=== PATIENT | male | born 1950 | race Caucasian/White ===

== ENCOUNTER 2020-03-03 05:32 | Inpatient (IN) | payer OTHER ==
[2020-03-03] MEDS ORDERED: metoPROLOL SUCCINATE 25 MG TAB.SR.24H (FP) PO ONE (11:18)
--- NOTE | 2020-03-03 11:20 | HP ---
Admitting History and Physical - Primary Care Physician PCP: Lauren Chambers - Admission Chief Complaint: rapid Afib History of Present Illness: GI - DR Vaca called me for this pt - Pt was scheduled to undergo EGD/colonoscopy today but was found to be in rapid AFib-- he did not get endoscopy done-- while he was being checked for vitals and connected to monitor, was found to be in rapid AFib EKF-- shows rapid AFib I examined him in the Endo suite-- seated in chair, friend at bedside-- pt is comfortable, no palpitations, chest pain or dizziness He does have chronic right knee pain EKG done-- noted to have rapid Afib History Source: Patient Limitations to Obtaining History: No Limitations - Past Medical History Cardiovascular: Yes: CHF, HTN, Hyperlipdemia Musculoskeletal: Yes: Osteoarthritis - Advance Directives Advance Directives: Yes: Living Will, Health Care Proxy - Smoking History Smoking history: Former smoker Have you smoked in the past 12 months: No Aproximately how many cigarettes per day: 0 If you are a former smoker, when did you quit?: 2007 - Alcohol/Substance Use Hx Alcohol Use: No Home Medications - Allergies Allergies/Adverse Reactions: Allergies Allergy/AdvReac Type Severity Reaction Status Date / Time No Known Drug Allergies Allergy Verified 11/20/13 08:49 - Home Medications Home Medications: Ambulatory Orders Furosemide [Lasix -] 40 mg PO DAILY #0 tablet 01/15/13 Montelukast Na [Singulair -] 10 mg PO HS #0 tablet 01/15/13 Potassium Chloride [K-Dur] 10 meq PO DAILY 02/01/13 Loratadine [Claritin -] 10 mg PO DAILY 11/14/13 Aspirin [Aspirin EC] 81 mg PO DAILY 02/27/20 Losartan Potassium [Cozaar -] 100 mg PO DAILY 02/27/20 Review of Systems - Review of Systems Constitutional: denies: Chills, Fever Cardiovascular: denies: Chest Pain, Edema, Palpitations, Shortness of Breath Neurological: denies: Dizziness Physical Examination Vital Signs: Vital Signs Temperature 97.7 F 03/03/20 10:22 Pulse Rate 154 H 03/03/20 10:22 Respiratory Rate 16 03/03/20 10:22 Blood Pressure 150/89 03/03/20 10:22 O2 Sat by Pulse Oximetry (%) 94 L 03/03/20 10:22 Constitutional: Yes: No Distress, Calm Cardiovascular: Yes: Pulse Irregular Respiratory: Yes: Diminished Gastrointestinal: Yes: Normal Bowel Sounds, Soft, Abdomen, Obese. No: Palpable Mass, Tenderness Edema: Yes Edema: LLE: 1+, RLE: 1+ Neurological: Yes: Alert, Oriented ...Motor Strength: WNL Psychiatric: Yes: WNL Imaging - Results EKG: Image Reviewed (rapid afib) Problem List - Problems (1) Diastolic CHF Code(s): I50.30 - UNSPECIFIED DIASTOLIC (CONGESTIVE) HEART FAILURE (2) New onset a-fib Code(s): I48.91 - UNSPECIFIED ATRIAL FIBRILLATION (3) Rapid atrial fibrillation Code(s): I48.91 - UNSPECIFIED ATRIAL FIBRILLATION (4) HTN (hypertension) Code(s): I10 - ESSENTIAL (PRIMARY) HYPERTENSION (5) Obesity Code(s): E66.9 - OBESITY, UNSPECIFIED Assessment/Plan PLAN Check labs now check cardiac enzymes Needs admission to telemetry cancelled endoscopy for now spoke with Cardiology and GI stat dose of toprol start Eliquis check rate will need iv lopressor as needed
[2020-03-03] MEDS: METOPROLOL TARTRATE 5 MG/5 ML VIAL IVPUSH PRN ×2 (12:09→18:23)
[2020-03-03] MEDS: APIXABAN 5 MG TABLET PO SCH ×2 (12:09→21:10)
--- NOTE | 2020-03-03 13:16 | CON.CARD ---
Consult Consult Specialty:: cardiology Referred by:: medicine Reason for Consultation:: afib - History of Present Illness Chief Complaint: afib History of Present Illness: 69M h/o HTN, ?CHF p/w atrial fibrillation. He had planned outpatient colonoscopy, when he was hooked up to the monitor noted to be in afib with RVR with rates reportedly up to 140s-150s. Received IV metoprolol and PO metoprolol succinate as well as eliquis. He denies prior diagnosis of afib but was was on blood thinners in the past, was on rivaroxaban he is not sure why. He was also told he had "mild heart failure" in the past not sure of details. Saw Dr. Watkins several years ago, no cardio follow up since then. Currently no chest pain, palps, dizziness, dyspnea - History Source History Provided By: Patient - Past Medical History Cardio/Vascular: Yes: CHF, HTN - Alcohol/Substance Use Hx Alcohol Use: No - Smoking History Smoking history: Former smoker Have you smoked in the past 12 months: No Aproximately how many cigarettes per day: 0 If you are a former smoker, when did you quit?: 2007 Home Medications - Allergies Allergies/Adverse Reactions: Allergies Allergy/AdvReac Type Severity Reaction Status Date / Time No Known Drug Allergies Allergy Verified 11/20/13 08:49 - Home Medications Home Medications: Ambulatory Orders Furosemide [Lasix -] 40 mg PO DAILY #0 tablet 01/15/13 Montelukast Na [Singulair -] 10 mg PO HS #0 tablet 01/15/13 Potassium Chloride [K-Dur] 10 meq PO DAILY 02/01/13 Loratadine [Claritin -] 10 mg PO DAILY 11/14/13 Aspirin [Aspirin EC] 81 mg PO DAILY 02/27/20 Losartan Potassium [Cozaar -] 100 mg PO DAILY 02/27/20 Family Medical History Family History: Unremarkable Review of Systems - Review of Systems Constitutional: reports: No Symptoms Eyes: reports: No Symptoms HENT: reports: No Symptoms Neck: reports: No Symptoms Cardiovascular: reports: No Symptoms Respiratory: reports: No Symptoms Gastrointestinal: reports: No Symptoms Genitourinary: reports: No Symptoms Musculoskeletal: reports: No Symptoms Integumentary: reports: No Symptoms Neurological: reports: No Symptoms Endocrine: reports: No Symptoms Hematology/Lymphatic: reports: No Symptoms Psychiatric: reports: No Symptoms Vital Signs: Vital Signs Temperature 97.7 F 03/03/20 10:22 Pulse Rate 140 H 03/03/20 12:09 Respiratory Rate 16 03/03/20 10:22 Blood Pressure 131/89 03/03/20 12:09 O2 Sat by Pulse Oximetry (%) 94 L 03/03/20 10:22 Constitutional: Yes: No Distress, Calm Eyes: Yes: Conjunctiva Clear, EOM Intact HENT: Yes: Atraumatic, Normocephalic Neck: Yes: Supple, Trachea Midline Respiratory: Yes: Regular, CTA Bilaterally Gastrointestinal: Yes: Normal Bowel Sounds, Soft Cardiovascular: Yes: Pulse Irregular JVD: No Heart Sounds: Yes: S1, S2 Musculoskeletal: No: Back Pain Extremities: No: Cold Edema: No Integumentary: No: Jaundice Neurological: Yes: Alert, Oriented Psychiatric: No: Agitated Assessment/Plan tele: afib rate 90s-110s atrial fibrillation - new diagnosis - labs pending, check TSH as well - start metoprolol for rate control, uptitrate as tolerated - [id number] warrants anticoagulation, cont eliquis 5 mg BID -check echo - monitor on tele HTN - cont losartan ?CHF - patient was told this in the past but not sure of details - check echo
[2020-03-03 14:10] LABS: BASO % 0.2 % (0-2.0); EOS % 1.1 % (0-4.5); HEMATOCRIT 48.1 % (35.4-49); HEMOGLOBIN 16.7 GM/dL (11.7-16.9); LYMPH % 25.1 % (8-40); MCH 32.2 pg (25.7-33.7); MCHC 34.7 g/dl (32.0-35.9); MEAN CELL VOLUME 92.6 fl (80-96); MEAN PLT VOLUME 8.9 fl (7.5-11.1); MONO % 7.4 % (3.8-10.2); NEUT % 66.2 % (42.8-82.8); PLATELET COUNT 195 K/MM3 (134-434); RBC 5.19 M/mm3 (4.00-5.60); RDW 13.6 % (11.9-15.9); WHITE BLOOD COUNT 9.2 K/mm3 (4.0-10.0)
[2020-03-03] MEDS ORDERED: dilTIAZem HCL 25 MG/5 ML - 5 ML VIAL IVPUSH PRN (14:32)
[2020-03-03 14:34] LABS: ALBUMIN 3.8 g/dl (3.4-5.0); ALK PHOS 67 U/L (45-117); ANION GAP 7 MMOL/L (8-16); BILIRUBIN,TOTAL 0.8 mg/dL (0.2-1); BLOOD UREA NITROGEN 16.3 mg/dL (7-18); CHLORIDE 106 mmol/L (98-107); CO2 27 mmol/L (21-32); CREATININE 0.6 mg/dL (0.55-1.3); GLUCOSE,RANDOM 101 mg/dL (74-106); SGOT/AST 21 U/L (15-37); SGPT/ALT 30 U/L (13-61); SODIUM 141 mmol/L (136-145); TOT PROT 6.9 g/dl (6.4-8.2)
[2020-03-03] MEDS: traMADol HCL 50 MG TABLET PO PRN (14:55)
[2020-03-03] MEDS: metoPROLOL SUCCINATE 25 MG TAB.SR.24H (FP) PO SCH (21:10)
[2020-03-04] MEDS: traMADol HCL 50 MG TABLET PO PRN ×2 (09:00→18:16)
--- NOTE | 2020-03-04 10:04 | ECHO ---
Version: 1 Name: GAY PAVON Exam: Adult Echocardiogram Study Date: 03/04/2020, 9:03 AM Age: 69 Years MMode/2D Measurements & Calculations IVSd: 1.11 cm LVIDs: 2.5 cm LVIDd: 3.9 cm LVPWd: 1.21 cm LAV (MOD-bp): 54.0 ml ACS: 1.81 cm Ao root diam: 3.1 cm LVOT diam: 2.01 cm LA dimension: 4.4 cm Doppler Measurements & Calculations Ao max P.4 mmHg Ao V2 max: 126.0 cm/sec Left Ventricle The left ventricular size, thickness and function are normal. EF 64%. Right Ventricle The right ventricle is normal in size and function. Atria Mild to moderate LAE. Right atrial size is normal. Mitral Valve The mitral valve is normal in structure and function. Tricuspid Valve The tricuspid valve is normal in structure and function. There was insufficient TR detected to calcu late RV systolic pressure. Aortic Valve The aortic valve is normal in structure and function. Pulmonic Valve The pulmonic valve is normal in structure and function. Great Vessels The aortic root is normal size. Pericardium/Pleura There is no pericardial effusion. Summary Statements The left ventricular size, thickness and function are normal The right ventricle is normal in size and function. Mild to moderate LAE The mitral valve is normal in structure and function. The tricuspid valve is normal in structure and function. The aortic valve is normal in structure and function. EF 64% MD Ervin Mcmillan 03/04/2020, 10:04 AM Ordering Physician: Darby Sandoval Referring Physician: DARBY SANDOVAL Performed By: Chelly Orozco
[2020-03-04] MEDS: metoPROLOL SUCCINATE 25 MG TAB.SR.24H (FP) PO SCH (10:17)
[2020-03-04] MEDS: LOSARTAN POTASSIUM 50 MG TABLET PO SCH (10:17)
[2020-03-04] MEDS: APIXABAN 5 MG TABLET PO SCH ×2 (10:17→21:27)
--- NOTE | 2020-03-04 12:25 | PN ---
Progress Note (short form) - Note Progress Note: [facility] *[facility]* Consultation-Cardiology Patient Name: GAY PAVON Date of : 1950 Patient Status: Inpatient Attending Provider: Fiona Tran Date: 03/03/20 13:11 Initialization Date: 03/03/20 13:11 Consult Consult Specialty:: cardiology Referred by:: medicine Reason for Consultation:: afib - History of Present Illness Chief Complaint: afib History of Present Illness: 69M h/o HTN, ?CHF p/w atrial fibrillation. He had planned outpatient colonoscopy, when he was hooked up to the monitor noted to be in afib with RVR with rates reportedly up to 140s-150s. Received IV metoprolol and PO metoprolol succinate as well as eliquis. He denies prior diagnosis of afib but was was on blood thinners in the past, was on rivaroxaban he is not sure why. He was also told he had "mild heart failure" in the past not sure of details. Saw Dr. Watkins several years ago, no cardio follow up since then. Currently no chest pain, palps, dizziness, dyspnea - History Source History Provided By: Patient - Past Medical History Cardio/Vascular: Yes: CHF, HTN - Alcohol/Substance Use Hx Alcohol Use: No - Smoking History Smoking history: Former smoker Have you smoked in the past 12 months: No Aproximately how many cigarettes per day: 0 If you are a former smoker, when did you quit?: 2007 Home Medications - Allergies Allergies/Adverse Reactions: Allergies Allergy/AdvReac Type Severity Reaction Status Date / Time No Known Drug Allergies Allergy Verified 11/20/13 08:49 - Home Medications Home Medications: Ambulatory Orders Furosemide [Lasix -] 40 mg PO DAILY #0 tablet 01/15/13 Montelukast Na [Singulair -] 10 mg PO HS #0 tablet 01/15/13 Potassium Chloride [K-Dur] 10 meq PO DAILY 02/01/13 Loratadine [Claritin -] 10 mg PO DAILY 11/14/13 Aspirin [Aspirin EC] 81 mg PO DAILY 02/27/20 Losartan Potassium [Cozaar -] 100 mg PO DAILY 02/27/20 Family Medical History Family History: Unremarkable Review of Systems - Review of Systems Constitutional: reports: No Symptoms Eyes: reports: No Symptoms HENT: reports: No Symptoms Neck: reports: No Symptoms Cardiovascular: reports: No Symptoms Respiratory: reports: No Symptoms Gastrointestinal: reports: No Symptoms Genitourinary: reports: No Symptoms Musculoskeletal: reports: No Symptoms Integumentary: reports: No Symptoms Neurological: reports: No Symptoms Endocrine: reports: No Symptoms Hematology/Lymphatic: reports: No Symptoms Psychiatric: reports: No Symptoms Vital Signs: Vital Signs Temperature 97.7 F 03/03/20 10:22 Pulse Rate 140 H 03/03/20 12:09 Respiratory Rate 16 03/03/20 10:22 Blood Pressure 131/89 03/03/20 12:09 O2 Sat by Pulse Oximetry (%) 94 L 03/03/20 10:22 Constitutional: Yes: No Distress, Calm Eyes: Yes: Conjunctiva Clear, EOM Intact HENT: Yes: Atraumatic, Normocephalic Neck: Yes: Supple, Trachea Midline Respiratory: Yes: Regular, CTA Bilaterally Gastrointestinal: Yes: Normal Bowel Sounds, Soft Cardiovascular: Yes: Pulse Irregular JVD: No Heart Sounds: Yes: S1, S2 Musculoskeletal: No: Back Pain Extremities: No: Cold Edema: No Integumentary: No: Jaundice Neurological: Yes: Alert, Oriented Psychiatric: No: Agitated Assessment/Plan tele: afib rate 90s-110s, episodes RVR 150s-160s echo 02/2020 nl LV/RV function, mild to mod LAE, no significant valvular pathology atrial fibrillation - new diagnosis - TSH ok - inc metoprolol succinate to 50 mg BID - [id number] warrants anticoagulation, cont eliquis 5 mg BID - echo unremarkable - monitor on tele HTN - cont losartan chronic diastolic HF - nl EF on echo here - cont home lasix
--- NOTE | 2020-03-04 12:34 | PN ---
Progress Note (short form) - Note Progress Note: no distress feels well no palpitations or chest pain Vital Signs - 24 hr 03/03/20 03/03/20 03/03/20 14:13 14:30 15:00 Temperature 97.8 F 97.6 F Pulse Rate 137 H 137 H Respiratory 20 20 20 Rate Blood Pressure 127/70 150/84 O2 Sat by Pulse 95 95 Oximetry (%) 03/03/20 03/03/20 03/03/20 18:00 18:23 20:03 Temperature 97.7 F 98.8 F Pulse Rate 83 144 H 110 H Respiratory 20 18 Rate Blood Pressure 139/76 137/74 136/66 O2 Sat by Pulse 94 L Oximetry (%) 03/03/20 03/04/20 03/04/20 21:00 02:11 05:36 Temperature 97.7 F 98.2 F Pulse Rate 108 H 82 Respiratory 20 18 Rate Blood Pressure 134/75 125/73 O2 Sat by Pulse 94 L 94 L Oximetry (%) 03/04/20 08:59 Temperature 98.2 F Pulse Rate 92 H Respiratory 18 Rate Blood Pressure 128/74 O2 Sat by Pulse 94 L Oximetry (%) S1 S2 irregular Lungs clear Abd- soft, NT Edema + PLAN HR still elevated-- Metoprolol increased labs unremarkable TSH normal Echo noted and d/w pt-- normal EF ON Lasix for diastolic CHF Problem List - Problems (1) Diastolic CHF Code(s): I50.30 - UNSPECIFIED DIASTOLIC (CONGESTIVE) HEART FAILURE (2) New onset a-fib Code(s): I48.91 - UNSPECIFIED ATRIAL FIBRILLATION (3) Rapid atrial fibrillation Code(s): I48.91 - UNSPECIFIED ATRIAL FIBRILLATION (4) HTN (hypertension) Code(s): I10 - ESSENTIAL (PRIMARY) HYPERTENSION (5) Obesity Code(s): E66.9 - OBESITY, UNSPECIFIED
--- NOTE | 2020-03-04 12:43 | EKG ---
Test Reason : Blood Pressure : / mmHG Vent. Rate : 110 BPM Atrial Rate : 227 BPM P-R Int : 000 ms QRS Dur : 086 ms QT Int : 292 ms P-R-T Axes : 000 054 -02 degrees QTc Int : 395 ms ATRIAL FIBRILLATION WITH RAPID VENTRICULAR RESPONSE LOW VOLTAGE QRS ABNORMAL ECG WHEN COMPARED WITH ECG OF 15-FEB-2013 17:57, ATRIAL FIBRILLATION HAS REPLACED SINUS RHYTHM Confirmed by MD Hipolito, Ervin ([id number]) on 03/04/2020 12:42:58 PM Referred By: Lencho Vaca Confirmed By:Ervin Mcmillan MD
[2020-03-04] MEDS ORDERED: metoPROLOL SUCCINATE 25 MG TAB.SR.24H (FP) PO ONE (13:30)
[2020-03-05] MEDS: traMADol HCL 50 MG TABLET PO PRN ×3 (03:26→21:39)
[2020-03-05] MEDS: FUROSEMIDE 40 MG TABLET (FP) PO SCH (09:12)
[2020-03-05] MEDS: APIXABAN 5 MG TABLET PO SCH ×2 (09:13→21:41)
[2020-03-05] MEDS: LOSARTAN POTASSIUM 50 MG TABLET PO SCH (09:13)
--- NOTE | 2020-03-05 11:18 | PN ---
Progress Note (short form) - Note Progress Note: Chief Complaint: afib History of Present Illness: 69M h/o HTN, ?CHF p/w atrial fibrillation. He had planned outpatient colonoscopy, when he was hooked up to the monitor noted to be in afib with RVR with rates reportedly up to 140s-150s. Received IV metoprolol and PO metoprolol succinate as well as eliquis. He denies prior diagnosis of afib but was was on blood thinners in the past, was on rivaroxaban he is not sure why. He was also told he had "mild heart failure" in the past not sure of details. Saw Dr. Fior jacobo several years ago, no cardio follow up since then. Currently no chest pain, palps, dizziness, dyspnea s: no cp sob palps dizzy Current Medications Generic Name Dose Route Start Last Admin Trade Name Freq PRN Reason Stop Dose Admin Apixaban 5 mg 03/03/20 11:30 03/05/20 09:13 Eliquis - PO 5 mg BID CHRISTIANE Administration Diltiazem HCl 10 mg 03/03/20 14:32 03/03/20 15:58 Cardizem Injection - IVPUSH 10 mg Q4H PRN Administration TACHYCARDIA Furosemide 40 mg 03/05/20 10:00 03/05/20 09:12 Lasix - PO 40 mg DAILY CHRISTIANE Administration Losartan Potassium 100 mg 03/04/20 10:00 03/05/20 09:13 Cozaar - PO 100 mg DAILY CHRISTIANE Administration Metoprolol Succinate 50 mg 03/04/20 22:00 03/05/20 09:13 Toprol Xl - PO 50 mg BID CHRISTIANE Administration Metoprolol Tartrate 5 mg 03/03/20 11:59 03/03/20 18:23 Lopressor Injection - IVPUSH 5 mg Q4H PRN Administration HYPERTENSION Tramadol HCl 50 mg 03/03/20 12:26 03/05/20 09:13 Ultram - PO 50 mg Q6H PRN Administration PAIN LEVEL 6-10 Vital Signs Period Temp Pulse Resp BP Sys/Fang Pulse Ox Last 24 Hr 97.4 F-98.2 F 57-118 18-20 95-134/56-66 94-95 Constitutional: Yes: No Distress, Calm Eyes: Yes: Conjunctiva Clear, EOM Intact HENT: Yes: Atraumatic, Normocephalic Neck: Yes: Supple, Trachea Midline Respiratory: Yes: Regular, CTA Bilaterally Gastrointestinal: Yes: Normal Bowel Sounds, Soft Cardiovascular: Yes: Pulse Irregular JVD: No Heart Sounds: Yes: S1, S2 Musculoskeletal: No: Back Pain Extremities: No: Cold Edema: No Integumentary: No: Jaundice Neurological: Yes: Alert, Oriented Psychiatric: No: Agitated CBC, BMP 03/03/20 13:27 03/03/20 13:27 Assessment/Plan tele: afib rate 90s-120s echo 02/2020 nl LV/RV function, mild to mod LAE, no significant valvular pathology atrial fibrillation - new diagnosis - TSH ok - rate improved but still mildly elevated, will inc metoprolol succinate to 75 mg BID - [id number] warrants anticoagulation, cont eliquis 5 mg BID - echo unremarkable - monitor on tele HTN - bp on lower side after increasing toprol, will decrease losartan from 100 to 50 and monitor bp chronic diastolic HF - nl EF on echo here - cont home lasix
[2020-03-05] MEDS ORDERED: LOSARTAN POTASSIUM 50 MG TABLET PO SCH (11:45)
--- NOTE | 2020-03-05 12:01 | PN ---
Progress Note (short form) - Note Progress Note: no distress feels well no palpitations or chest pain spoke with RN- apparently he has episodes of sleep apnea , at that time, his heart rate increases Pt has known h.o sleep apnea but has not able to get CPAP machine due to insurance Vital Signs - 24 hr 03/04/20 03/04/20 03/04/20 15:00 18:00 19:42 Temperature 97.4 F L 97.5 F L 98.2 F Pulse Rate 93 H 95 H 57 L Respiratory 18 20 18 Rate Blood Pressure 134/63 95/57 L 104/57 L O2 Sat by Pulse 94 L 94 L Oximetry (%) 03/04/20 03/05/20 03/05/20 20:42 01:12 05:17 Temperature 97.8 F 98.2 F Pulse Rate 90 118 H Respiratory 18 18 Rate Blood Pressure 95/66 118/56 L O2 Sat by Pulse 94 L 95 Oximetry (%) 03/05/20 03/05/20 08:07 09:00 Temperature 98.2 F Pulse Rate 106 H Respiratory 18 18 Rate Blood Pressure 114/58 L O2 Sat by Pulse 95 Oximetry (%) Current Medications Generic Name Dose Route Start Last Admin Trade Name Freq PRN Reason Stop Dose Admin Apixaban 5 mg 03/03/20 11:30 03/05/20 09:13 Eliquis - PO 5 mg BID CHRISTIANE Administration Diltiazem HCl 10 mg 03/03/20 14:32 03/03/20 15:58 Cardizem Injection - IVPUSH 10 mg Q4H PRN Administration TACHYCARDIA Furosemide 40 mg 03/05/20 10:00 03/05/20 09:12 Lasix - PO 40 mg DAILY CHRISTIANE Administration Losartan Potassium 50 mg 03/06/20 10:00 Cozaar - PO DAILY CHRISTIANE Metoprolol Succinate 75 mg 03/05/20 11:21 Toprol Xl - PO BID CHRISTIANE Metoprolol Tartrate 5 mg 03/03/20 11:59 03/03/20 18:23 Lopressor Injection - IVPUSH 5 mg Q4H PRN Administration HYPERTENSION Tramadol HCl 50 mg 03/03/20 12:26 03/05/20 09:13 Ultram - PO 50 mg Q6H PRN Administration PAIN LEVEL 6-10 S1 S2 irregular Lungs clear Abd- soft, NT Edema decreased PLAN HR still elevated-- Metoprolol increased labs unremarkable TSH normal Echo noted and d/w pt-- normal EF ON Lasix for diastolic CHF sleep apnea- start CPAP, Pulmonary consult Problem List - Problems (1) Diastolic CHF Code(s): I50.30 - UNSPECIFIED DIASTOLIC (CONGESTIVE) HEART FAILURE (2) New onset a-fib Code(s): I48.91 - UNSPECIFIED ATRIAL FIBRILLATION (3) Rapid atrial fibrillation Code(s): I48.91 - UNSPECIFIED ATRIAL FIBRILLATION (4) HTN (hypertension) Code(s): I10 - ESSENTIAL (PRIMARY) HYPERTENSION (5) Obesity Code(s): E66.9 - OBESITY, UNSPECIFIED
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
--- NOTE | 2020-03-06 06:05 | PN ---
Progress Note, Physician Chief Complaint: Toprol increased yesterday to 75mg BID Seems to be in NSR Denies CP/SOB/palps TELE NSR - Current Medication List Current Medications: Active Medications Apixaban (Eliquis -) 5 mg PO BID [facility] Last Admin: 03/05/20 21:41 Dose: 5 mg Documented by: Diltiazem HCl (Cardizem Injection -) 10 mg IVPUSH Q4H PRN PRN Reason: TACHYCARDIA Last Admin: 03/03/20 15:58 Dose: 10 mg Documented by: Furosemide (Lasix -) 40 mg PO DAILY [facility] Last Admin: 03/05/20 09:12 Dose: 40 mg Documented by: Losartan Potassium (Cozaar -) 50 mg PO DAILY [facility] Metoprolol Succinate (Toprol Xl -) 75 mg PO BID [facility] Last Admin: 03/05/20 21:41 Dose: 75 mg Documented by: Metoprolol Tartrate (Lopressor Injection -) 5 mg IVPUSH Q4H PRN PRN Reason: HYPERTENSION Last Admin: 03/03/20 18:23 Dose: 5 mg Documented by: Tramadol HCl (Ultram -) 50 mg PO Q6H PRN PRN Reason: PAIN LEVEL 6-10 Last Admin: 03/05/20 21:39 Dose: 50 mg Documented by: - Objective Vital Signs: Vital Signs Temperature 97.7 F 03/06/20 01:28 Pulse Rate 82 03/06/20 01:28 Respiratory Rate 20 03/06/20 01:28 Blood Pressure 123/69 03/06/20 01:28 O2 Sat by Pulse Oximetry (%) 98 03/05/20 22:00 Constitutional: Yes: No Distress, Calm Eyes: Yes: Conjunctiva Clear Cardiovascular: Yes: Regular Rate and Rhythm Respiratory: Yes: CTA Bilaterally Gastrointestinal: Yes: Soft (nt) Edema: No Peripheral Pulses WNL: No Neurological: Yes: Alert, Oriented ...Motor Strength: WNL Labs: CBC, BMP 03/03/20 13:27 03/03/20 13:27 - ....Imaging EKG: Image Reviewed Assessment/Plan Assessment/Plan tele: afib rate 90s-120s echo 02/2020 nl LV/RV function, mild to mod LAE, no significant valvular pathology atrial fibrillation: - new diagnosis - TSH ok - In NSR, check ECG. Seems to have converted overnight - [id number] warrants anticoagulation, cont eliquis 5 mg BID - echo unremarkable - Discharge planning. -Should f/u in our office in 1-2 weeks. HTN: - bp stable with reduction Losartan to 50 to allow room for BB titration. chronic diastolic HF: - nl EF on echo here - cont home lasix D/C tele
[2020-03-06] MEDS: traMADol HCL 50 MG TABLET PO PRN ×2 (06:37→13:29)
[2020-03-06] MEDS: FUROSEMIDE 40 MG TABLET (FP) PO SCH (09:26)
[2020-03-06] MEDS: APIXABAN 5 MG TABLET PO SCH (09:26)
[2020-03-06] MEDS ORDERED: LOSARTAN POTASSIUM 50 MG TABLET PO SCH (10:00)
--- NOTE | 2020-03-06 11:31 | DS ---
Physical Examination Vital Signs: Vital Signs Temperature 97.7 F 03/06/20 01:28 Pulse Rate 64 03/06/20 08:12 Respiratory Rate 20 03/06/20 06:44 Blood Pressure 132/75 03/06/20 06:44 O2 Sat by Pulse Oximetry (%) 94 L 03/06/20 08:12 Findings/Remarks: Pt seen/ examined chart reviewed awake/ comfortable no complains feels well sitting in chair Constitutional: Yes: No Distress, Calm Neck: Yes: Supple Cardiovascular: Yes: Regular Rate and Rhythm Respiratory: Yes: CTA Bilaterally Gastrointestinal: Yes: Soft, Abdomen, Obese Edema: Yes Edema: LLE: 1+, RLE: 1+ Peripheral Pulses WNL: Yes Neurological: Yes: Alert Labs: CBC, BMP 03/03/20 13:27 03/03/20 13:27 Discharge Summary Problems reviewed: Yes Reason For Visit: SCREENING Current Active Problems COPD (chronic obstructive pulmonary disease) (Acute) Diastolic CHF (Acute) New onset a-fib (Acute) RADHA (obstructive sleep apnea) (Acute) Rapid atrial fibrillation (Acute) Hospital Course: Admitted for New Afib- rapid while going for Colonoscopy monitored on tele Started on [place] echo- ok converted to sinus stable for d/c close monitoring f/u in office in 2 weeks. Meds reconcilled Prescribed as needed Time spend approx 40 min- examining record/ documenting as well as coordating care Condition: Fair - Instructions Diet, Activity, Other Instructions: = Resume previous activities = Follow-up with your gastro-enterologist for follow-up and to schedule colonoscopy = Follow-up with your primary care physician for sleep studies Disposition: HOME - Home Medications Comprehensive Discharge Medication List: Ambulatory Orders Furosemide [Lasix -] 40 mg PO DAILY #0 tablet 01/15/13 Montelukast Na [Singulair -] 10 mg PO HS #0 tablet 01/15/13 Potassium Chloride [K-Dur] 10 meq PO DAILY 02/01/13 Losartan Potassium [Cozaar -] 100 mg PO DAILY 10/08/20 Apixaban [Eliquis -] 5 mg PO BID #60 tablet 03/06/20 Metoprolol Succinate [Toprol Xl] 75 mg PO BID 30 Days #180 tab.er.24h 03/06/20
[2020-03-06 12:02] VITALS: BP 128/71; PULSE 104; TEMP 98
--- NOTE | 2020-03-06 13:43 | PN ---
Progress Note (short form) - Note Progress Note: PULMONARY OOB TO CHAIR SUBJECTIVE IMPROVEMENT USED PAP FOR A FEW HOURS LAST NIGHT VSS/AFEBRILE Constitutional: Yes: No Distress, Obese Eyes: Yes: Conjunctiva Clear, EOM Intact HENT: Yes: Atraumatic, Normocephalic Neck: Yes: Supple, Trachea Midline Cardiovascular: No: Pulse Irregular Respiratory: Yes: Diminished. No: Accessory Muscle Use, Rales, Rhonchi, SOB, SOB on Exertion, Stridor, Tachypnea, Wheezes ...Inspection: Yes: WNL ...Clubbing: No Gastrointestinal: Yes: Normal Bowel Sounds, Soft, Abdomen, Obese Renal/: Yes: WNL Musculoskeletal: Yes: Back Pain, Joint Stiffness Extremities: Yes: Other (multiple surgical scars ) Edema: Yes Peripheral Pulses WNL: Yes Integumentary: Yes: WNL Neurological: Yes: WNL, Alert, Oriented ...Motor Strength: WNL Psychiatric: Yes: WNL, Alert, Oriented Labs: NOTED Chest X-ray: Report Reviewed, Image Reviewed Problem List - Problems (1) RADHA (obstructive sleep apnea) Code(s): G47.33 - OBSTRUCTIVE SLEEP APNEA (ADULT) (PEDIATRIC) (2) COPD (chronic obstructive pulmonary disease) Code(s): J44.9 - CHRONIC OBSTRUCTIVE PULMONARY DISEASE, UNSPECIFIED (3) Diastolic CHF Code(s): I50.30 - UNSPECIFIED DIASTOLIC (CONGESTIVE) HEART FAILURE (4) New onset a-fib Code(s): I48.91 - UNSPECIFIED ATRIAL FIBRILLATION (5) Rapid atrial fibrillation Code(s): I48.91 - UNSPECIFIED ATRIAL FIBRILLATION (6) HTN (hypertension) Code(s): I10 - ESSENTIAL (PRIMARY) HYPERTENSION (7) Obesity Code(s): E66.9 - OBESITY, UNSPECIFIED (8) S/P hip replacement Code(s): Z96.649 - PRESENCE OF UNSPECIFIED ARTIFICIAL HIP JOINT Home sleep study to be arranged No smoking counseled Outpatient PFTs Cardiac workup ongoing Weight loss discussed Sleep hygiene discussed Tarah Buchanan MD
--- NOTE | 2020-03-06 13:46 | EKG ---
Test Reason : Blood Pressure : / mmHG Vent. Rate : 060 BPM Atrial Rate : 060 BPM P-R Int : 180 ms QRS Dur : 086 ms QT Int : 420 ms P-R-T Axes : 069 055 031 degrees QTc Int : 420 ms SINUS RHYTHM WITH PREMATURE SUPRAVENTRICULAR COMPLEXES OTHERWISE NORMAL ECG WHEN COMPARED WITH ECG OF 04-MAR-2020 12:04, SINUS RHYTHM HAS REPLACED ATRIAL FIBRILLATION VENT. RATE HAS DECREASED BY 50 BPM Confirmed by PAULO MCNEILL MD ([id number]) on 03/06/2020 1:45:54 PM Referred By: Lencho Vaca Confirmed By:PAULO MCNEILL MD
[2020-03-07 08:23] VITALS: BMI 42.3
== END 2020-03-06 14:19 | disposition home or self-care (01) | DRG 309 ==
LOC: JASU-ENDO 05:32 → J2C 11:18 → J4W 11:52
PROVIDERS: ADMIT Internal Medicine; ATTEND Internal Medicine
DX: I48.91 Unspecified atrial fibrillation (principal); Z68.41 Body mass index [BMI] 40.0-44.9, adult; I50.32 Chronic diastolic (congestive) heart failure; E78.5 Hyperlipidemia, unspecified; M19.90 Unspecified osteoarthritis, unspecified site; E66.01 Morbid (severe) obesity due to excess calories; I11.0 Hypertensive heart disease with heart failure; J44.9 Chronic obstructive pulmonary disease, unspecified; G47.33 Obstructive sleep apnea (adult) (pediatric); Z96.649 Presence of unspecified artificial hip joint
CPT/HCPCS: 36415; 80053; 82550; 83735; 84443; 84484; 85025; 93005; 93010; 93306-TC; 94660

== ENCOUNTER 2020-07-26 10:33 | Inpatient (IN) | payer OTHER ==
[2020-07-26] MEDS ORDERED: VANCOMYCIN 1 GM in D5W (PRE-DOCKED) 1,000 MG/250 ML IVPB ONE (12:18)
[2020-07-26] MEDS ORDERED: PIPERACILLIN/TAZOB 2.25 GM 2.25 GM in DEXTROSE 5%-WATER - 50 ML IVPB ONE (12:18)
[2020-07-26] MEDS ORDERED: PIPERACILLIN/TAZOB 2.25 GM 2.25 GM/50 ML BAG IVPB ONE (12:35)
[2020-07-26] MEDS ORDERED: VANCOMYCIN 1 GRAM (PRE-DOCKED) 1,000 MG/250 ML BAG IVPB ONE (12:35)
[2020-07-26 12:57] LABS: BASO % 0.5 % (0-2.0); EOS % 1.2 % (0-4.5); HEMOGLOBIN 15.1 GM/dL (11.7-16.9); LYMPH % 21.1 % (8-40); MCH 30.7 pg (25.7-33.7); MCHC 33.5 g/dl (32.0-35.9); MEAN CELL VOLUME 91.8 fl (80-96); MEAN PLT VOLUME 8.3 fl (7.5-11.1); MONO % 11.8 % (3.8-10.2); NEUT % 65.4 % (42.8-82.8); PLATELET COUNT 242 K/MM3 (134-434); RBC 4.91 M/mm3 (4.00-5.60); RDW 13.7 % (11.9-15.9); WHITE BLOOD COUNT 11.1 K/mm3 (4.0-10.0)
[2020-07-26 13:23] LABS: CHLORIDE 103 mmol/L (98-107); POTASSIUM 4.2 mmol/L (3.5-5.1); SODIUM 140 mmol/L (136-145)
[2020-07-26 13:25] LABS: CALCIUM 9.4 mg/dL (8.5-10.1)
[2020-07-26 13:26] LABS: ALBUMIN 3.4 g/dl (3.4-5.0); ANION GAP 3 MMOL/L (8-16); BLOOD UREA NITROGEN 26.6 mg/dL (7-18); CO2 34 mmol/L (21-32); GLUCOSE,RANDOM 102 mg/dL (74-106)
[2020-07-26 13:29] LABS: CREATININE 0.8 mg/dL (0.55-1.3); SGOT/AST 19 U/L (15-37); SGPT/ALT 27 U/L (13-61)
[2020-07-26 13:30] LABS: BILIRUBIN,TOTAL 0.4 mg/dL (0.2-1)
[2020-07-26 13:31] LABS: TOT PROT 6.8 g/dl (6.4-8.2)
[2020-07-26 13:32] LABS: ALK PHOS 74 U/L (45-117)
[2020-07-26 13:34] LABS: N-TERMINAL BNP 329.1 pg/ml (5-125)
[2020-07-26] MEDS ORDERED: FUROSEMIDE 40 MG/4 ML INJECTABLE VIAL IVPUSH ONE (13:48)
[2020-07-26] MEDS ORDERED: FUROSEMIDE 40 MG/4 ML INJECTABLE VIAL ONE (13:54)
[2020-07-26] MEDS ORDERED: ACETAMINOPHEN 325 MG TABLET (FP) PO PRN (14:46)
[2020-07-26] MEDS ORDERED: ACETAMINOPHEN 325 MG TABLET (FP) ONE (17:08)
[2020-07-26] MEDS ORDERED: APIXABAN 5 MG TABLET ONE (22:02)
[2020-07-26] MEDS ORDERED: MONTELUKAST NA 10 MG TABLET ONE (22:03)
[2020-07-26] MEDS: MONTELUKAST NA 10 MG TABLET PO SCH (22:12)
[2020-07-26] MEDS: APIXABAN 5 MG TABLET PO SCH (22:12)
[2020-07-27 03:39] VITALS: BMI 44.2
[2020-07-27] MEDS: FUROSEMIDE 40 MG/4 ML INJECTABLE VIAL IVPUSH SCH ×2 (05:02→13:31)
[2020-07-27 08:41] LABS: BASO % 0.4 % (0-2.0); EOS % 1.5 % (0-4.5); HEMATOCRIT 41.4 % (35.4-49); HEMOGLOBIN 14.4 GM/dL (11.7-16.9); LYMPH % 25.5 % (8-40); MCH 31.7 pg (25.7-33.7); MCHC 34.7 g/dl (32.0-35.9); MEAN CELL VOLUME 91.3 fl (80-96); MEAN PLT VOLUME 8.4 fl (7.5-11.1); MONO % 11.5 % (3.8-10.2); NEUT % 61.1 % (42.8-82.8); PLATELET COUNT 245 K/MM3 (134-434); RBC 4.54 M/mm3 (4.00-5.60); RDW 13.7 % (11.9-15.9); WHITE BLOOD COUNT 8.1 K/mm3 (4.0-10.0)
[2020-07-27 08:54] LABS: ALBUMIN 3.2 g/dl (3.4-5.0); CALCIUM 8.6 mg/dL (8.5-10.1)
[2020-07-27 08:55] LABS: BLOOD UREA NITROGEN 18.7 mg/dL (7-18)
[2020-07-27 08:58] LABS: CREATININE 0.8 mg/dL (0.55-1.3)
[2020-07-27 08:59] LABS: TOT PROT 6.5 g/dl (6.4-8.2)
[2020-07-27] MEDS: POTASSIUM CHLORIDE TABS 10 MEQ TABLET.ER (FP) PO SCH (09:31)
[2020-07-27] MEDS: LOSARTAN POTASSIUM 50 MG TABLET PO SCH (09:32)
[2020-07-27] MEDS: APIXABAN 5 MG TABLET PO SCH ×2 (09:32→21:35)
[2020-07-27] MEDS: VANCOMYCIN/WATER BAGS 1,250 MG/250 ML BAG IVPB SCH (13:31)
[2020-07-27] MEDS: CEFAZOLIN 2 GM/D5W 2 GM/50 ML ML IVPB SCH ×2 (13:31→17:21)
[2020-07-27] MEDS: MONTELUKAST NA 10 MG TABLET PO SCH (21:36)
[2020-07-28] MEDS ORDERED: PT OWN MED DRAWER 7, Y5N ONE ×5 (01:42→13:32)
[2020-07-28] MEDS: VANCOMYCIN/WATER BAGS 1,250 MG/250 ML BAG IVPB SCH ×2 (01:48→13:33)
[2020-07-28] MEDS: CEFAZOLIN 2 GM/D5W 2 GM/50 ML ML IVPB SCH ×3 (01:48→17:46)
[2020-07-28] MEDS: FUROSEMIDE 40 MG/4 ML INJECTABLE VIAL IVPUSH SCH ×2 (05:29→15:30)
[2020-07-28] MEDS: MINERAL OIL/PET HY-PHL TOPICAL OINTMENT 454 GM JAR TP SCH (11:30)
[2020-07-28] MEDS: LOSARTAN POTASSIUM 50 MG TABLET PO SCH (11:31)
[2020-07-28] MEDS: POTASSIUM CHLORIDE TABS 10 MEQ TABLET.ER (FP) PO SCH (11:32)
[2020-07-28] MEDS: APIXABAN 5 MG TABLET PO SCH ×2 (11:32→21:19)
[2020-07-28] MEDS ORDERED: MAG HYDROX/AL HYDROX/SIMETH 30 ML UNIT-DOSE CUP PO ONE (21:18)
[2020-07-28] MEDS: MONTELUKAST NA 10 MG TABLET PO SCH (21:20)
[2020-07-29] MEDS ORDERED: PT OWN MED DRAWER 7, Y5N ONE ×3 (00:23→14:59)
[2020-07-29] MEDS: VANCOMYCIN/WATER BAGS 1,250 MG/250 ML BAG IVPB SCH ×2 (00:24→15:02)
[2020-07-29] MEDS: CEFAZOLIN 2 GM/D5W 2 GM/50 ML ML IVPB SCH ×3 (02:28→17:52)
[2020-07-29] MEDS ORDERED: MAG HYDROX/AL HYDROX/SIMETH 30 ML UNIT-DOSE CUP PO ONE (04:13)
[2020-07-29] MEDS ORDERED: DOCUSATE SODIUM 100 MG CAPSULE (FP) PO PRN (05:22)
[2020-07-29] MEDS: FUROSEMIDE 40 MG/4 ML INJECTABLE VIAL IVPUSH SCH ×2 (05:26→15:02)
[2020-07-29] MEDS ORDERED: ONDANSETRON 4 MG/2 ML VIAL IVPUSH ONE (06:24)
[2020-07-29 08:17] LABS: ALBUMIN 3.2 g/dl (3.4-5.0); BLOOD UREA NITROGEN 14.6 mg/dL (7-18); CALCIUM 8.5 mg/dL (8.5-10.1)
[2020-07-29 08:20] LABS: CREATININE 0.7 mg/dL (0.55-1.3)
[2020-07-29 08:22] LABS: BILIRUBIN,TOTAL 0.8 mg/dL (0.2-1); TOT PROT 6.5 g/dl (6.4-8.2)
[2020-07-29 08:56] LABS: BASO % 0.5 % (0-2.0); EOS % 1.3 % (0-4.5); HEMOGLOBIN 15.5 GM/dL (11.7-16.9); LYMPH % 18.5 % (8-40); MCH 31.7 pg (25.7-33.7); MCHC 34.5 g/dl (32.0-35.9); MEAN CELL VOLUME 91.9 fl (80-96); MEAN PLT VOLUME 9.1 fl (7.5-11.1); MONO % 7.5 % (3.8-10.2); NEUT % 72.2 % (42.8-82.8); PLATELET COUNT 193 K/MM3 (134-434); RDW 13.5 % (11.9-15.9)
[2020-07-29 09:58] LABS: WHITE BLOOD COUNT 11.8 K/mm3 (4.0-10.0)
[2020-07-29] MEDS: LOSARTAN POTASSIUM 50 MG TABLET PO SCH (10:04)
[2020-07-29] MEDS: APIXABAN 5 MG TABLET PO SCH ×2 (10:04→21:36)
[2020-07-29] MEDS: MINERAL OIL/PET HY-PHL TOPICAL OINTMENT 454 GM JAR TP SCH (10:04)
[2020-07-29] MEDS: POTASSIUM CHLORIDE TABS 10 MEQ TABLET.ER (FP) PO SCH (10:04)
[2020-07-29] MEDS ORDERED: SENNOSIDES 8.6MG TABLET (FP) PO PRN (12:36)
[2020-07-29] MEDS ORDERED: SIMETHICONE 40 MG/0.6 ML BOTTLE PO PRN (12:36)
[2020-07-29] MEDS: CARVEDILOL 12.5 MG TABLET (FP) PO SCH (21:36)
[2020-07-29] MEDS: MONTELUKAST NA 10 MG TABLET PO SCH (21:36)
[2020-07-30] MEDS ORDERED: PT OWN MED DRAWER 7, Y5N ONE (00:39)
[2020-07-30] MEDS: VANCOMYCIN/WATER BAGS 1,250 MG/250 ML BAG IVPB SCH ×2 (00:41→13:54)
[2020-07-30] MEDS: CEFAZOLIN 2 GM/D5W 2 GM/50 ML ML IVPB SCH ×3 (02:35→17:39)
[2020-07-30] MEDS: FUROSEMIDE 40 MG/4 ML INJECTABLE VIAL IVPUSH SCH ×2 (05:28→13:53)
[2020-07-30] MEDS: POTASSIUM CHLORIDE TABS 10 MEQ TABLET.ER (FP) PO SCH (09:23)
[2020-07-30] MEDS: APIXABAN 5 MG TABLET PO SCH ×2 (09:23→21:43)
[2020-07-30] MEDS: CARVEDILOL 12.5 MG TABLET (FP) PO SCH ×2 (09:23→21:43)
[2020-07-30] MEDS: LOSARTAN POTASSIUM 50 MG TABLET PO SCH (09:24)
[2020-07-30] MEDS: MINERAL OIL/PET HY-PHL TOPICAL OINTMENT 454 GM JAR TP SCH (11:17)
[2020-07-30] MEDS: MONTELUKAST NA 10 MG TABLET PO SCH (21:43)
[2020-07-31] MEDS ORDERED: PT OWN MED DRAWER 7, Y5N ONE ×3 (02:07→05:52)
[2020-07-31] MEDS: CEFAZOLIN 2 GM/D5W 2 GM/50 ML ML IVPB SCH ×3 (02:29→17:15)
[2020-07-31] MEDS: VANCOMYCIN/WATER BAGS 1,250 MG/250 ML BAG IVPB SCH ×2 (03:29→13:40)
[2020-07-31] MEDS: FUROSEMIDE 40 MG/4 ML INJECTABLE VIAL IVPUSH SCH ×2 (06:01→13:39)
[2020-07-31] MEDS: APIXABAN 5 MG TABLET PO SCH ×2 (09:44→21:20)
[2020-07-31] MEDS: CARVEDILOL 12.5 MG TABLET (FP) PO SCH ×2 (09:44→21:20)
[2020-07-31] MEDS: POTASSIUM CHLORIDE TABS 10 MEQ TABLET.ER (FP) PO SCH (09:44)
[2020-07-31] MEDS: LOSARTAN POTASSIUM 50 MG TABLET PO SCH (09:45)
[2020-07-31] MEDS: MINERAL OIL/PET HY-PHL TOPICAL OINTMENT 454 GM JAR TP SCH (14:58)
[2020-07-31] MEDS: MONTELUKAST NA 10 MG TABLET PO SCH (21:20)
[2020-07-31] MEDS ORDERED: LORATADINE 10 MG TABLET PO ONE (21:30)
[2020-07-31] MEDS ORDERED: METOPROLOL TARTRATE 5 MG/5 ML VIAL IVPUSH ONE (23:29)
[2020-08-01] MEDS ORDERED: SENNOSIDES 8.6MG TABLET (FP) PO PRN (00:30)
[2020-08-01] MEDS ORDERED: SIMETHICONE 40 MG/0.6 ML BOTTLE PO PRN (00:30)
[2020-08-01] MEDS ORDERED: DOCUSATE SODIUM 100 MG CAPSULE (FP) PO PRN (00:30)
[2020-08-01] MEDS ORDERED: METOPROLOL TARTRATE 5 MG/5 ML VIAL IVPUSH ONE (00:30)
[2020-08-01] MEDS ORDERED: ACETAMINOPHEN 325 MG TABLET (FP) PO PRN (00:30)
[2020-08-01] MEDS: VANCOMYCIN/WATER BAGS 1,250 MG/250 ML BAG IVPB SCH ×2 (03:39→14:51)
[2020-08-01] MEDS: CEFAZOLIN 2 GM/D5W 2 GM/50 ML ML IVPB SCH ×3 (03:39→17:27)
[2020-08-01] MEDS: FUROSEMIDE 40 MG/4 ML INJECTABLE VIAL IVPUSH SCH ×2 (05:21→14:51)
[2020-08-01 08:19] LABS: POTASSIUM 3.9 mmol/L (3.5-5.1)
[2020-08-01 08:34] LABS: CALCIUM 8.9 mg/dL (8.5-10.1)
[2020-08-01 08:35] LABS: BLOOD UREA NITROGEN 14.5 mg/dL (7-18)
[2020-08-01 08:37] LABS: CREATININE 0.8 mg/dL (0.55-1.3)
[2020-08-01] MEDS: APIXABAN 5 MG TABLET PO SCH ×2 (09:00→22:24)
[2020-08-01] MEDS: LOSARTAN POTASSIUM 50 MG TABLET PO SCH (09:00)
[2020-08-01] MEDS: POTASSIUM CHLORIDE TABS 10 MEQ TABLET.ER (FP) PO SCH (09:00)
[2020-08-01] MEDS: MINERAL OIL/PET HY-PHL TOPICAL OINTMENT 454 GM JAR TP SCH (09:53)
[2020-08-01] MEDS ORDERED: CARVEDILOL 12.5 MG TABLET (FP) PO ONE (10:00)
[2020-08-01] MEDS ORDERED: dilTIAZem HCL 60 MG TABLET PO ONE (10:00)
[2020-08-01] MEDS ORDERED: CARVEDILOL 12.5 MG TABLET (FP) PO SCH (10:00)
[2020-08-01] MEDS: MONTELUKAST NA 10 MG TABLET PO SCH (22:24)
[2020-08-01] MEDS: CARVEDILOL 25 MG TABLET (FP) PO SCH (22:24)
[2020-08-02] MEDS: VANCOMYCIN/WATER BAGS 1,250 MG/250 ML BAG IVPB SCH ×2 (01:29→13:55)
[2020-08-02] MEDS: CEFAZOLIN 2 GM/D5W 2 GM/50 ML ML IVPB SCH ×3 (01:34→18:35)
[2020-08-02] MEDS: FUROSEMIDE 40 MG/4 ML INJECTABLE VIAL IVPUSH SCH ×2 (07:07→15:03)
[2020-08-02] MEDS: POTASSIUM CHLORIDE TABS 10 MEQ TABLET.ER (FP) PO SCH (10:32)
[2020-08-02] MEDS: APIXABAN 5 MG TABLET PO SCH ×2 (10:32→21:18)
[2020-08-02] MEDS: CARVEDILOL 25 MG TABLET (FP) PO SCH ×2 (10:32→21:18)
[2020-08-02] MEDS: LOSARTAN POTASSIUM 50 MG TABLET PO SCH (10:32)
[2020-08-02] MEDS: MINERAL OIL/PET HY-PHL TOPICAL OINTMENT 454 GM JAR TP SCH (10:33)
[2020-08-02] MEDS ORDERED: PT OWN MED DRAWER 7, Y5N ONE (13:48)
[2020-08-02] MEDS: MONTELUKAST NA 10 MG TABLET PO SCH (21:19)
[2020-08-03] MEDS ORDERED: PT OWN MED DRAWER 7, Y5N ONE (00:46)
[2020-08-03] MEDS: VANCOMYCIN/WATER BAGS 1,250 MG/250 ML BAG IVPB SCH ×2 (00:49→13:43)
[2020-08-03] MEDS: CEFAZOLIN 2 GM/D5W 2 GM/50 ML ML IVPB SCH ×3 (02:20→17:01)
[2020-08-03] MEDS: FUROSEMIDE 40 MG/4 ML INJECTABLE VIAL IVPUSH SCH (05:49)
[2020-08-03 08:02] LABS: HEMATOCRIT 42.7 % (35.4-49); HEMOGLOBIN 14.6 GM/dL (11.7-16.9); MCH 31.6 pg (25.7-33.7); MCHC 34.2 g/dl (32.0-35.9); MEAN CELL VOLUME 92.3 fl (80-96); MEAN PLT VOLUME 8.7 fl (7.5-11.1); PLATELET COUNT 264 K/MM3 (134-434); RBC 4.62 M/mm3 (4.00-5.60); RDW 13.4 % (11.9-15.9)
[2020-08-03 08:10] LABS: POTASSIUM 4.1 mmol/L (3.5-5.1)
[2020-08-03 08:15] LABS: ALBUMIN 3.1 g/dl (3.4-5.0); BLOOD UREA NITROGEN 27.2 mg/dL (7-18); CALCIUM 8.5 mg/dL (8.5-10.1)
[2020-08-03 08:18] LABS: CREATININE 0.8 mg/dL (0.55-1.3)
[2020-08-03 08:19] LABS: BILIRUBIN,TOTAL 0.6 mg/dL (0.2-1); TOT PROT 6.5 g/dl (6.4-8.2)
[2020-08-03] MEDS: POTASSIUM CHLORIDE TABS 10 MEQ TABLET.ER (FP) PO SCH (09:50)
[2020-08-03] MEDS: APIXABAN 5 MG TABLET PO SCH ×2 (09:50→21:32)
[2020-08-03] MEDS: CARVEDILOL 25 MG TABLET (FP) PO SCH ×2 (09:50→21:32)
[2020-08-03] MEDS: LOSARTAN POTASSIUM 50 MG TABLET PO SCH (09:50)
[2020-08-03] MEDS: MINERAL OIL/PET HY-PHL TOPICAL OINTMENT 454 GM JAR TP SCH (09:50)
[2020-08-03] MEDS: FUROSEMIDE 40 MG TABLET (FP) PO SCH (13:42)
[2020-08-03] MEDS: MONTELUKAST NA 10 MG TABLET PO SCH (21:32)
[2020-08-04] MEDS ORDERED: PT OWN MED DRAWER 7, Y5N ONE (00:38)
[2020-08-04] MEDS: VANCOMYCIN/WATER BAGS 1,250 MG/250 ML BAG IVPB SCH (00:41)
[2020-08-04] MEDS: CEFAZOLIN 2 GM/D5W 2 GM/50 ML ML IVPB SCH ×2 (03:00→09:21)
[2020-08-04 04:26] VITALS: TEMP 98.2
[2020-08-04 06:13] VITALS: PULSE 66
[2020-08-04] MEDS: FUROSEMIDE 40 MG TABLET (FP) PO SCH (06:22)
[2020-08-04] MEDS ORDERED: LIDOCAINE HCL 2% (20ML MULTI-DOSE VIAL) ONE (07:25)
[2020-08-04 08:55] VITALS: BP 134/75
[2020-08-04] MEDS: APIXABAN 5 MG TABLET PO SCH (09:20)
[2020-08-04] MEDS: LOSARTAN POTASSIUM 50 MG TABLET PO SCH (09:21)
[2020-08-04] MEDS: CARVEDILOL 25 MG TABLET (FP) PO SCH (09:21)
[2020-08-04] MEDS: POTASSIUM CHLORIDE TABS 10 MEQ TABLET.ER (FP) PO SCH (09:22)
[2020-08-04] MEDS: MINERAL OIL/PET HY-PHL TOPICAL OINTMENT 454 GM JAR TP SCH (09:22)
== END 2020-08-04 13:06 | disposition home or self-care (01) | DRG 602 ==
LOC: JER 10:33 → JERBED 13:24 → J8W 07-27 01:28 → J4W 08-01 00:18
PROVIDERS: ADMIT Internal Medicine; ATTEND Internal Medicine
DX: L03.116 Cellulitis of left lower limb (principal); I50.33 Acute on chronic diastolic (congestive) heart failure; Z68.42 Body mass index [BMI] 45.0-49.9, adult; L02.416 Cutaneous abscess of left lower limb; E78.5 Hyperlipidemia, unspecified; I48.0 Paroxysmal atrial fibrillation; J44.9 Chronic obstructive pulmonary disease, unspecified; E66.01 Morbid (severe) obesity due to excess calories; I87.2 Venous insufficiency (chronic) (peripheral); D72.829 Elevated white blood cell count, unspecified; L03.115 Cellulitis of right lower limb; G47.30 Sleep apnea, unspecified; I11.0 Hypertensive heart disease with heart failure; M19.90 Unspecified osteoarthritis, unspecified site; Z87.891 Personal history of nicotine dependence
CPT/HCPCS: 36415; 71045-TC-FY; 73590-TC-LT-FY; 73630-TC-LT; 74019-TC-FY; 80048; 80053; 82550; 83735; 83880; 84443; 84484; 85025; 85027; 87040; 93005; 93010; 93306-TC; 93971-TC; 99285-25; C9803; G0480; U0003

== ENCOUNTER 2020-09-09 08:02 | Inpatient (IN) | payer OTHER ==
[2020-09-09] MEDS ORDERED: VANCOMYCIN HCL 1,500 MG in DEXTROSE 5%-WATER - 500 ML IVPB ONE (09:21)
[2020-09-09 09:30] LABS: BASO % 0.3 % (0-2.0); EOS % 1.6 % (0-4.5); HEMATOCRIT 38.2 % (35.4-49); LYMPH % 23.9 % (8-40); MCHC 33.9 g/dl (32.0-35.9); MEAN CELL VOLUME 91.3 fl (80-96); MEAN PLT VOLUME 8.5 fl (7.5-11.1); MONO % 12.6 % (3.8-10.2); NEUT % 61.6 % (42.8-82.8); PLATELET COUNT 214 K/MM3 (134-434); RBC 4.18 M/mm3 (4.00-5.60); WHITE BLOOD COUNT 7.2 K/mm3 (4.0-10.0)
[2020-09-09] MEDS ORDERED: VANCOMYCIN PREMIX 1.5 GM 1,500 MG/300 ML BAG IVPB ONE (09:30)
[2020-09-09 09:37] LABS: INR 1.75 (0.83-1.09); PROTHROMBIN TIME (PATIENT) 20.8 SEC (9.7-13.0)
[2020-09-09 09:59] LABS: BILIRUBIN,TOTAL 0.5 mg/dL (0.2-1); BLOOD UREA NITROGEN 27.1 mg/dL (7-18); CREATININE 0.9 mg/dL (0.55-1.3); TOT PROT 6.5 g/dl (6.4-8.2)
[2020-09-09] MEDS: FUROSEMIDE 40 MG/4 ML INJECTABLE VIAL IVPUSH SCH (15:38)
[2020-09-09] MEDS: CEFAZOLIN 2 GM/D5W 2 GM/50 ML ML IVPB SCH (15:46)
[2020-09-09] MEDS ORDERED: ACETAMINOPHEN 325 MG TABLET (FP) PO PRN (16:13)
[2020-09-09] MEDS: traMADol HCL 50 MG TABLET PO PRN (17:01)
[2020-09-09] MEDS: ALBUTEROL SO4 2.5/IPRATROPIUM 0.5 INH SOL 3 ML VIAL.NEB. NEB PRN (17:07)
[2020-09-09] MEDS: MONTELUKAST NA 10 MG TABLET PO SCH (22:09)
[2020-09-09] MEDS: CARVEDILOL 25 MG TABLET (FP) PO SCH (22:09)
[2020-09-09] MEDS: APIXABAN 5 MG TABLET PO SCH (22:09)
[2020-09-10] MEDS: NYSTATIN POWDER 100,000 UNITS/GM - 15 GM TOPICAL POWDER TP SCH ×3 (00:02→21:16)
[2020-09-10] MEDS: CEFAZOLIN 2 GM/D5W 2 GM/50 ML ML IVPB SCH ×3 (00:03→16:11)
[2020-09-10] MEDS: traMADol HCL 50 MG TABLET PO PRN ×2 (05:16→21:16)
[2020-09-10] MEDS: FUROSEMIDE 40 MG/4 ML INJECTABLE VIAL IVPUSH SCH ×2 (05:19→14:56)
[2020-09-10 08:54] LABS: BASO % 0.5 % (0-2.0); EOS % 1.8 % (0-4.5); HEMATOCRIT 41.3 % (35.4-49); HEMOGLOBIN 14.1 GM/dL (11.7-16.9); LYMPH % 21.4 % (8-40); MCH 31.3 pg (25.7-33.7); MCHC 34.1 g/dl (32.0-35.9); MEAN CELL VOLUME 91.6 fl (80-96); MEAN PLT VOLUME 8.6 fl (7.5-11.1); MONO % 12.8 % (3.8-10.2); NEUT % 63.5 % (42.8-82.8); PLATELET COUNT 223 K/MM3 (134-434); RBC 4.51 M/mm3 (4.00-5.60); RDW 13.8 % (11.9-15.9); WHITE BLOOD COUNT 7.8 K/mm3 (4.0-10.0)
[2020-09-10 09:20] LABS: ALBUMIN 3.4 g/dl (3.4-5.0); CALCIUM 8.8 mg/dL (8.5-10.1)
[2020-09-10 09:24] LABS: CREATININE 0.9 mg/dL (0.55-1.3)
[2020-09-10 09:25] LABS: BILIRUBIN,TOTAL 0.9 mg/dL (0.2-1); TOT PROT 7.2 g/dl (6.4-8.2)
[2020-09-10] MEDS ORDERED: PT OWN MED DRAWER 7, Y5N ONE (09:32)
[2020-09-10] MEDS: APIXABAN 5 MG TABLET PO SCH ×2 (09:35→21:16)
[2020-09-10] MEDS: POTASSIUM CHLORIDE TABS 10 MEQ TABLET.ER (FP) PO SCH (09:35)
[2020-09-10] MEDS: CARVEDILOL 25 MG TABLET (FP) PO SCH ×2 (10:40→21:16)
[2020-09-10] MEDS: LOSARTAN POTASSIUM 50 MG TABLET PO SCH (10:42)
[2020-09-10] MEDS: ALBUTEROL SO4 2.5/IPRATROPIUM 0.5 INH SOL 3 ML VIAL.NEB. NEB PRN (11:37)
[2020-09-10] MEDS: BUDESONIDE/FORMETEROL FUMARATE 160/4.5 mcg INHALER IH SCH ×2 (11:47→21:17)
[2020-09-10] MEDS: MONTELUKAST NA 10 MG TABLET PO SCH (21:16)
[2020-09-11] MEDS: CEFAZOLIN 2 GM/D5W 2 GM/50 ML ML IVPB SCH ×3 (01:35→18:56)
[2020-09-11] MEDS: FUROSEMIDE 40 MG/4 ML INJECTABLE VIAL IVPUSH SCH ×2 (06:46→14:24)
[2020-09-11 09:26] LABS: CALCIUM 9.4 mg/dL (8.5-10.1)
[2020-09-11 09:27] LABS: BLOOD UREA NITROGEN 31.5 mg/dL (7-18)
[2020-09-11] MEDS: CARVEDILOL 25 MG TABLET (FP) PO SCH ×2 (09:53→22:46)
[2020-09-11] MEDS: POTASSIUM CHLORIDE TABS 10 MEQ TABLET.ER (FP) PO SCH (09:53)
[2020-09-11] MEDS: LOSARTAN POTASSIUM 50 MG TABLET PO SCH (09:53)
[2020-09-11] MEDS: APIXABAN 5 MG TABLET PO SCH ×2 (09:53→22:46)
[2020-09-11] MEDS: BUDESONIDE/FORMETEROL FUMARATE 160/4.5 mcg INHALER IH SCH ×2 (09:54→22:47)
[2020-09-11] MEDS: NYSTATIN POWDER 100,000 UNITS/GM - 15 GM TOPICAL POWDER TP SCH ×2 (09:55→22:47)
[2020-09-11] MEDS: ALBUTEROL SO4 2.5/IPRATROPIUM 0.5 INH SOL 3 ML VIAL.NEB. NEB PRN (20:31)
[2020-09-11] MEDS: traMADol HCL 50 MG TABLET PO PRN (22:46)
[2020-09-11] MEDS: MONTELUKAST NA 10 MG TABLET PO SCH (22:46)
[2020-09-12] MEDS: CEFAZOLIN 2 GM/D5W 2 GM/50 ML ML IVPB SCH ×3 (00:49→17:04)
[2020-09-12] MEDS: FUROSEMIDE 40 MG/4 ML INJECTABLE VIAL IVPUSH SCH ×2 (05:29→17:04)
[2020-09-12] MEDS ORDERED: PT OWN MED DRAWER 7, Y5N ONE (09:31)
[2020-09-12 09:32] LABS: CALCIUM 8.8 mg/dL (8.5-10.1)
[2020-09-12 09:33] LABS: BLOOD UREA NITROGEN 30.5 mg/dL (7-18)
[2020-09-12 09:36] LABS: CREATININE 0.9 mg/dL (0.55-1.3)
[2020-09-12] MEDS: POTASSIUM CHLORIDE TABS 10 MEQ TABLET.ER (FP) PO SCH (09:36)
[2020-09-12] MEDS: APIXABAN 5 MG TABLET PO SCH ×2 (09:36→21:15)
[2020-09-12] MEDS: CARVEDILOL 25 MG TABLET (FP) PO SCH ×2 (09:36→21:15)
[2020-09-12] MEDS: BUDESONIDE/FORMETEROL FUMARATE 160/4.5 mcg INHALER IH SCH ×2 (09:37→21:15)
[2020-09-12] MEDS: NYSTATIN POWDER 100,000 UNITS/GM - 15 GM TOPICAL POWDER TP SCH ×2 (09:37→21:15)
[2020-09-12] MEDS: LOSARTAN POTASSIUM 50 MG TABLET PO SCH (09:37)
[2020-09-12] MEDS: traMADol HCL 50 MG TABLET PO PRN ×2 (09:40→18:07)
[2020-09-12] MEDS: MONTELUKAST NA 10 MG TABLET PO SCH (21:14)
[2020-09-13] MEDS: CEFAZOLIN 2 GM/D5W 2 GM/50 ML ML IVPB SCH ×3 (01:14→17:32)
[2020-09-13] MEDS: FUROSEMIDE 40 MG/4 ML INJECTABLE VIAL IVPUSH SCH ×2 (05:56→18:03)
[2020-09-13 10:00] LABS: CALCIUM 8.7 mg/dL (8.5-10.1)
[2020-09-13 10:01] LABS: BLOOD UREA NITROGEN 24.7 mg/dL (7-18)
[2020-09-13 10:04] LABS: CREATININE 0.9 mg/dL (0.55-1.3)
[2020-09-13] MEDS ORDERED: PT OWN MED DRAWER 7, Y5N ONE (10:06)
[2020-09-13] MEDS: CARVEDILOL 25 MG TABLET (FP) PO SCH ×2 (10:16→21:09)
[2020-09-13] MEDS: POTASSIUM CHLORIDE TABS 10 MEQ TABLET.ER (FP) PO SCH (10:16)
[2020-09-13] MEDS: LOSARTAN POTASSIUM 50 MG TABLET PO SCH (10:16)
[2020-09-13] MEDS: APIXABAN 5 MG TABLET PO SCH ×2 (10:16→21:09)
[2020-09-13] MEDS: NYSTATIN POWDER 100,000 UNITS/GM - 15 GM TOPICAL POWDER TP SCH ×2 (10:17→21:09)
[2020-09-13] MEDS: BUDESONIDE/FORMETEROL FUMARATE 160/4.5 mcg INHALER IH SCH ×2 (10:17→21:09)
[2020-09-13] MEDS: traMADol HCL 50 MG TABLET PO PRN ×2 (11:03→17:32)
[2020-09-13] MEDS ORDERED: METOLAZONE 5 MG TABLET PO ONE (12:15)
[2020-09-13] MEDS ORDERED: FUROSEMIDE 40 MG/4 ML INJECTABLE VIAL IVPUSH SCH (12:45)
[2020-09-13] MEDS: ALBUTEROL SO4 2.5/IPRATROPIUM 0.5 INH SOL 3 ML VIAL.NEB. NEB PRN ×2 (17:49→21:17)
[2020-09-13] MEDS: MONTELUKAST NA 10 MG TABLET PO SCH (21:09)
[2020-09-14] MEDS: FUROSEMIDE 40 MG/4 ML INJECTABLE VIAL IVPUSH SCH ×2 (06:17→18:54)
[2020-09-14] MEDS: ALBUTEROL SO4 2.5/IPRATROPIUM 0.5 INH SOL 3 ML VIAL.NEB. NEB PRN ×2 (07:30→20:53)
[2020-09-14] MEDS ORDERED: PT OWN MED DRAWER 7, Y5N ONE (09:30)
[2020-09-14 09:31] LABS: BLOOD UREA NITROGEN 26.4 mg/dL (7-18)
[2020-09-14 09:36] LABS: CREATININE 0.9 mg/dL (0.55-1.3)
[2020-09-14] MEDS: POTASSIUM CHLORIDE TABS 10 MEQ TABLET.ER (FP) PO SCH (09:41)
[2020-09-14] MEDS: traMADol HCL 50 MG TABLET PO PRN ×2 (09:41→18:22)
[2020-09-14] MEDS: CEFAZOLIN 2 GM/D5W 2 GM/50 ML ML IVPB SCH ×4 (09:41→23:42)
[2020-09-14] MEDS: CARVEDILOL 25 MG TABLET (FP) PO SCH ×2 (09:41→21:41)
[2020-09-14] MEDS: APIXABAN 5 MG TABLET PO SCH ×2 (09:42→21:41)
[2020-09-14] MEDS: NYSTATIN POWDER 100,000 UNITS/GM - 15 GM TOPICAL POWDER TP SCH ×2 (09:43→21:41)
[2020-09-14] MEDS: BUDESONIDE/FORMETEROL FUMARATE 160/4.5 mcg INHALER IH SCH ×2 (09:43→21:41)
[2020-09-14] MEDS: LOSARTAN POTASSIUM 50 MG TABLET PO SCH (09:43)
[2020-09-14] MEDS ORDERED: METOLAZONE 5 MG TABLET PO ONE (17:30)
[2020-09-14] MEDS: MONTELUKAST NA 10 MG TABLET PO SCH (21:41)
[2020-09-15] MEDS: FUROSEMIDE 40 MG/4 ML INJECTABLE VIAL IVPUSH SCH ×2 (06:43→17:25)
[2020-09-15] MEDS ORDERED: PT OWN MED DRAWER 7, Y5N ONE ×2 (09:21→09:48)
[2020-09-15] MEDS: CEFAZOLIN 2 GM/D5W 2 GM/50 ML ML IVPB SCH ×2 (09:43→17:24)
[2020-09-15] MEDS: BUDESONIDE/FORMETEROL FUMARATE 160/4.5 mcg INHALER IH SCH ×2 (09:44→21:24)
[2020-09-15] MEDS: LOSARTAN POTASSIUM 50 MG TABLET PO SCH (09:44)
[2020-09-15] MEDS: POTASSIUM CHLORIDE TABS 10 MEQ TABLET.ER (FP) PO SCH (09:44)
[2020-09-15] MEDS: NYSTATIN POWDER 100,000 UNITS/GM - 15 GM TOPICAL POWDER TP SCH ×2 (09:44→21:24)
[2020-09-15] MEDS: APIXABAN 5 MG TABLET PO SCH ×2 (09:44→21:23)
[2020-09-15] MEDS: CARVEDILOL 25 MG TABLET (FP) PO SCH ×2 (09:44→21:23)
[2020-09-15] MEDS: ALBUTEROL SO4 2.5/IPRATROPIUM 0.5 INH SOL 3 ML VIAL.NEB. NEB PRN (20:30)
[2020-09-15] MEDS: MONTELUKAST NA 10 MG TABLET PO SCH (21:24)
[2020-09-16] MEDS: CEFAZOLIN 2 GM/D5W 2 GM/50 ML ML IVPB SCH ×2 (00:04→08:18)
[2020-09-16] MEDS: FUROSEMIDE 40 MG/4 ML INJECTABLE VIAL IVPUSH SCH (05:36)
[2020-09-16] MEDS: ALBUTEROL SO4 2.5/IPRATROPIUM 0.5 INH SOL 3 ML VIAL.NEB. NEB PRN ×2 (07:45→11:50)
[2020-09-16 08:43] LABS: HEMATOCRIT 45.2 % (35.4-49); HEMOGLOBIN 15.4 GM/dL (11.7-16.9); MCH 30.8 pg (25.7-33.7); MCHC 34.2 g/dl (32.0-35.9); MEAN CELL VOLUME 90.3 fl (80-96); MEAN PLT VOLUME 8.5 fl (7.5-11.1); PLATELET COUNT 268 K/MM3 (134-434); RBC 5.01 M/mm3 (4.00-5.60); RDW 13.5 % (11.9-15.9); WHITE BLOOD COUNT 8.4 K/mm3 (4.0-10.0)
[2020-09-16 09:01] LABS: ALBUMIN 3.3 g/dl (3.4-5.0); BLOOD UREA NITROGEN 37.3 mg/dL (7-18); CALCIUM 9.3 mg/dL (8.5-10.1)
[2020-09-16 09:06] LABS: BILIRUBIN,TOTAL 0.4 mg/dL (0.2-1); TOT PROT 7.2 g/dl (6.4-8.2)
[2020-09-16] MEDS: POTASSIUM CHLORIDE TABS 10 MEQ TABLET.ER (FP) PO SCH (09:38)
[2020-09-16] MEDS: LOSARTAN POTASSIUM 50 MG TABLET PO SCH (09:38)
[2020-09-16] MEDS: APIXABAN 5 MG TABLET PO SCH (09:38)
[2020-09-16] MEDS: CARVEDILOL 25 MG TABLET (FP) PO SCH (09:38)
[2020-09-16] MEDS ORDERED: PT OWN MED DRAWER 7, Y5N ONE (09:39)
[2020-09-16] MEDS: NYSTATIN POWDER 100,000 UNITS/GM - 15 GM TOPICAL POWDER TP SCH (09:42)
[2020-09-16] MEDS: BUDESONIDE/FORMETEROL FUMARATE 160/4.5 mcg INHALER IH SCH (09:42)
[2020-09-16 15:31] VITALS: BP 106/61; PULSE 66; TEMP 97.5
[2020-09-16] MEDS ORDERED: TORSEMIDE 20 MG TABLET (FP) PO SCH (22:00)
== END 2020-09-16 14:56 | disposition home or self-care (01) | DRG 602 ==
LOC: JER 08:02 → JERBED 09:56 → J5S 14:49
PROVIDERS: ADMIT Internal Medicine; ATTEND Internal Medicine
DX: L03.116 Cellulitis of left lower limb (principal); I50.33 Acute on chronic diastolic (congestive) heart failure; Z68.41 Body mass index [BMI] 40.0-44.9, adult; E66.01 Morbid (severe) obesity due to excess calories; I11.0 Hypertensive heart disease with heart failure; J44.9 Chronic obstructive pulmonary disease, unspecified; I87.2 Venous insufficiency (chronic) (peripheral); I48.0 Paroxysmal atrial fibrillation
CPT/HCPCS: 36415; 71045-TC-FY; 80048; 80053; 85025; 85027; 85610; 87040; 93005; 93010; 93970-TC; 94640; 99285-25; C9803; U0003; U0005

== ENCOUNTER 2021-09-25 01:16 | Inpatient (IN) | payer OTHER ==
[2021-09-25 03:09] LABS: BASO % 0.3 % (0-2.0); EOS % 1.1 % (0-4.5); HEMATOCRIT 41.5 % (35.4-49); LYMPH % 17.3 % (8-40); MCH 29.6 pg (25.7-33.7); MCHC 33.7 g/dl (32.0-35.9); MEAN CELL VOLUME 87.6 fl (80-96); MEAN PLT VOLUME 7.9 fl (7.5-11.1); NEUT % 73.3 % (42.8-82.8); PLATELET COUNT 262 10^3/uL (134-434); RBC 4.74 M/mm3 (4.00-5.60); RDW 14.7 % (11.9-15.9); WHITE BLOOD COUNT 8.7 K/mm3 (4.0-10.0)
[2021-09-25 03:34] LABS: INR 1.52 (0.83-1.09); PROTHROMBIN TIME (PATIENT) 17.6 SEC (9.7-13.0)
[2021-09-25 03:37] LABS: ACTIVATED PTT 39.7 SECONDS (25.2-36.5); CALCIUM 8.8 mg/dL (8.5-10.1)
[2021-09-25 03:38] LABS: ALBUMIN 3.4 g/dl (3.4-5.0); BLOOD UREA NITROGEN 20.4 mg/dL (7-18)
[2021-09-25 03:42] LABS: BILIRUBIN,TOTAL 0.3 mg/dL (0.2-1); TOT PROT 7.6 g/dl (6.4-8.2)
[2021-09-25 04:30] LABS: ERYTHROCYTE SEDIMENTATION RATE 66 mm/hr (0-20)
[2021-09-25] MEDS ORDERED: VANCOMYCIN 1 GM in D5W (PRE-DOCKED) 1,000 MG/250 ML IVPB ONE (04:31)
[2021-09-25] MEDS ORDERED: PIPERACILLIN/TAZOB 4.5 GM 4.5 GM in DEXTROSE 5%-WATER 100 ML IVPB ONE (04:31)
[2021-09-25] MEDS ORDERED: PIPERACILLIN/TAZOB 4.5 GM 4.5 GM/100 ML BAG IVPB ONE (04:36)
[2021-09-25 04:40] LABS: URINE APPEARANCE CLEAR; URINE BILIRUBIN NEGATIVE (NEGATIVE); URINE COLOR YELLOW; URINE GLUCOSE (UA) NEGATIVE (NEGATIVE); URINE KETONE NEGATIVE (NEGATIVE); URINE LEUK ESTERASE NEGATIVE (NEGATIVE); URINE NITRITE NEGATIVE (NEGATIVE); URINE PROTEIN NEGATIVE (NEGATIVE); URINE UROBILINOGEN 0.2 mg/dL (0.2-1.0)
[2021-09-25] MEDS ORDERED: VANCOMYCIN 1 GRAM (PRE-DOCKED) 1,000 MG/250 ML BAG IVPB ONE (05:41)
[2021-09-25] MEDS ORDERED: ALBUTEROL SO4 HFA INHALER IH PRN ×2 (06:30→08:11)
[2021-09-25] MEDS ORDERED: PIPERACILLIN/TAZOB 4.5 GM 4.5 GM in DEXTROSE 5%-WATER 100 ML IVPB SCH ×2 (10:00→11:00)
[2021-09-25] MEDS ORDERED: DEXTROSE 5%-WATER 100 ML IVPB ONE (10:07)
[2021-09-25] MEDS ORDERED: PIPERACILLIN/TAZOBACTAM 4.5 GM VIAL IVPB ONE (10:07)
[2021-09-25] MEDS: APIXABAN 5 MG TABLET PO SCH ×2 (10:53→21:57)
[2021-09-25 11:24] VITALS: BMI 46.7
[2021-09-25] MEDS ORDERED: TORSEMIDE 20 MG TABLET (FP) PO SCH (12:00)
[2021-09-25] MEDS: TORSEMIDE 100 MG TABLET PO SCH ×2 (14:31→14:32)
[2021-09-25] MEDS: CEFAZOLIN 2 GM in DEXTROSE 5%-WATER - 100 ML IVPB SCH ×2 (14:32→21:56)
[2021-09-25] MEDS: CARVEDILOL 25 MG TABLET (FP) PO SCH (21:57)
[2021-09-25] MEDS: MONTELUKAST NA 10 MG TABLET PO SCH (21:57)
[2021-09-25] MEDS: LATANOPROST 0.005% OPHTH SOLN 2.5ML BOTTLE OU SCH (22:06)
[2021-09-26] MEDS ORDERED: VANCOMYCIN 1,000 MG in DEXTROSE 5%-WATER - 250 ML IVPB SCH (06:00)
[2021-09-26] MEDS: CEFAZOLIN 2 GM in DEXTROSE 5%-WATER - 100 ML IVPB SCH ×3 (06:15→22:39)
[2021-09-26] MEDS: TORSEMIDE 100 MG TABLET PO SCH ×2 (06:34→13:12)
[2021-09-26] MEDS: LOSARTAN POTASSIUM 50 MG TABLET PO SCH (09:06)
[2021-09-26] MEDS: APIXABAN 5 MG TABLET PO SCH ×2 (09:07→21:46)
[2021-09-26] MEDS: CARVEDILOL 25 MG TABLET (FP) PO SCH ×2 (09:07→21:46)
[2021-09-26] MEDS: POTASSIUM CHLORIDE TABS 20 MEQ TABLET.ER (FP) PO SCH (09:07)
[2021-09-26] MEDS ORDERED: GAUZE BANDAGE TP SCH (10:00)
[2021-09-26] MEDS ORDERED: PATIENT'S OWN MEDICATION (NON-FORMULARY) (Polyhexam Biguan/Gauze Bandage [Kerlix Amd Banda TP SCH (10:00)
[2021-09-26] MEDS ORDERED: PATIENT'S OWN MEDICATION (NON-FORMULARY) (Calcium Alginate [Kendall] 1 EACH Bandage) TP SCH (10:00)
[2021-09-26] MEDS ORDERED: ACETAMINOPHEN 325 MG TABLET (FP) PO PRN (20:09)
[2021-09-26] MEDS: MONTELUKAST NA 10 MG TABLET PO SCH (21:46)
[2021-09-26] MEDS: LATANOPROST 0.005% OPHTH SOLN 2.5ML BOTTLE OU SCH (21:48)
[2021-09-27] MEDS: CEFAZOLIN 2 GM in DEXTROSE 5%-WATER - 100 ML IVPB SCH ×3 (05:23→22:04)
[2021-09-27] MEDS: FUROSEMIDE 40 MG/4 ML INJECTABLE VIAL IVPUSH SCH ×2 (06:21→18:23)
[2021-09-27 08:23] LABS: BASO % 0.3 % (0-2.0); EOS % 2.2 % (0-4.5); HEMATOCRIT 42.9 % (35.4-49); HEMOGLOBIN 14.2 GM/dL (11.7-16.9); LYMPH % 30.4 % (8-40); MCH 29.2 pg (25.7-33.7); MCHC 33.2 g/dl (32.0-35.9); MEAN PLT VOLUME 8.1 fl (7.5-11.1); MONO % 11.2 % (3.8-10.2); NEUT % 55.9 % (42.8-82.8); PLATELET COUNT 275 10^3/uL (134-434); RBC 4.87 M/mm3 (4.00-5.60); RDW 14.7 % (11.9-15.9); WHITE BLOOD COUNT 6.4 K/mm3 (4.0-10.0)
[2021-09-27 08:50] LABS: CALCIUM 8.8 mg/dL (8.5-10.1)
[2021-09-27 08:51] LABS: ALBUMIN 2.8 g/dl (3.4-5.0); BLOOD UREA NITROGEN 16.4 mg/dL (7-18)
[2021-09-27 08:54] LABS: CREATININE 0.9 mg/dL (0.55-1.3)
[2021-09-27 08:56] LABS: BILIRUBIN,TOTAL 0.4 mg/dL (0.2-1); TOT PROT 6.9 g/dl (6.4-8.2)
[2021-09-27] MEDS: POTASSIUM CHLORIDE TABS 20 MEQ TABLET.ER (FP) PO SCH (11:40)
[2021-09-27] MEDS: APIXABAN 5 MG TABLET PO SCH ×2 (11:40→22:03)
[2021-09-27] MEDS: LOSARTAN POTASSIUM 50 MG TABLET PO SCH (11:40)
[2021-09-27] MEDS: CARVEDILOL 25 MG TABLET (FP) PO SCH ×2 (11:40→22:03)
[2021-09-27] MEDS: MONTELUKAST NA 10 MG TABLET PO SCH (22:03)
[2021-09-27] MEDS: LATANOPROST 0.005% OPHTH SOLN 2.5ML BOTTLE OU SCH (22:04)
[2021-09-28] MEDS: CEFAZOLIN 2 GM in DEXTROSE 5%-WATER - 100 ML IVPB SCH ×3 (05:09→23:21)
[2021-09-28] MEDS: FUROSEMIDE 40 MG/4 ML INJECTABLE VIAL IVPUSH SCH ×2 (05:09→15:54)
[2021-09-28] MEDS: CARVEDILOL 25 MG TABLET (FP) PO SCH ×2 (10:22→23:21)
[2021-09-28] MEDS: APIXABAN 5 MG TABLET PO SCH ×2 (10:22→23:21)
[2021-09-28] MEDS: LOSARTAN POTASSIUM 50 MG TABLET PO SCH (10:22)
[2021-09-28] MEDS: POTASSIUM CHLORIDE TABS 20 MEQ TABLET.ER (FP) PO SCH (10:22)
[2021-09-28] MEDS: LATANOPROST 0.005% OPHTH SOLN 2.5ML BOTTLE OU SCH (23:21)
[2021-09-28] MEDS: MONTELUKAST NA 10 MG TABLET PO SCH (23:21)
[2021-09-29] MEDS: FUROSEMIDE 40 MG/4 ML INJECTABLE VIAL IVPUSH SCH ×2 (05:45→15:08)
[2021-09-29] MEDS: CEFAZOLIN 2 GM in DEXTROSE 5%-WATER - 100 ML IVPB SCH ×3 (06:13→21:44)
[2021-09-29 09:46] LABS: CALCIUM 8.6 mg/dL (8.5-10.1)
[2021-09-29 09:47] LABS: BLOOD UREA NITROGEN 24.5 mg/dL (7-18)
[2021-09-29 09:50] LABS: CREATININE 0.9 mg/dL (0.55-1.3)
[2021-09-29] MEDS: POTASSIUM CHLORIDE TABS 20 MEQ TABLET.ER (FP) PO SCH (11:08)
[2021-09-29] MEDS: CARVEDILOL 25 MG TABLET (FP) PO SCH ×2 (11:08→21:36)
[2021-09-29] MEDS: LOSARTAN POTASSIUM 50 MG TABLET PO SCH (11:08)
[2021-09-29] MEDS: APIXABAN 5 MG TABLET PO SCH ×2 (11:09→21:36)
[2021-09-29] MEDS: FLUTICASONE/SALMETEROL 100 MCG/50 MCG DISKUS IH SCH ×2 (13:11→21:41)
[2021-09-29] MEDS: MINERAL OIL/PET HY-PHL TOPICAL OINTMENT 454 GM JAR TP SCH (21:36)
[2021-09-29] MEDS: MONTELUKAST NA 10 MG TABLET PO SCH (21:36)
[2021-09-29] MEDS: LATANOPROST 0.005% OPHTH SOLN 2.5ML BOTTLE OU SCH (21:37)
[2021-09-30] MEDS: FUROSEMIDE 40 MG/4 ML INJECTABLE VIAL IVPUSH SCH ×2 (06:13→16:17)
[2021-09-30] MEDS: CEFAZOLIN 2 GM in DEXTROSE 5%-WATER - 100 ML IVPB SCH ×3 (06:30→22:08)
[2021-09-30] MEDS: APIXABAN 5 MG TABLET PO SCH ×2 (11:20→22:11)
[2021-09-30] MEDS: LOSARTAN POTASSIUM 50 MG TABLET PO SCH (11:20)
[2021-09-30] MEDS: CARVEDILOL 25 MG TABLET (FP) PO SCH ×2 (11:20→22:12)
[2021-09-30] MEDS: POTASSIUM CHLORIDE TABS 20 MEQ TABLET.ER (FP) PO SCH (11:21)
[2021-09-30] MEDS: MINERAL OIL/PET HY-PHL TOPICAL OINTMENT 454 GM JAR TP SCH (11:21)
[2021-09-30] MEDS: FLUTICASONE/SALMETEROL 100 MCG/50 MCG DISKUS IH SCH ×2 (11:21→22:11)
[2021-09-30] MEDS: LATANOPROST 0.005% OPHTH SOLN 2.5ML BOTTLE OU SCH (22:13)
[2021-09-30] MEDS: MONTELUKAST NA 10 MG TABLET PO SCH (22:13)
[2021-10-01] MEDS: CEFAZOLIN 2 GM in DEXTROSE 5%-WATER - 100 ML IVPB SCH ×3 (05:09→21:35)
[2021-10-01] MEDS: FUROSEMIDE 40 MG/4 ML INJECTABLE VIAL IVPUSH SCH ×2 (05:37→14:25)
[2021-10-01] MEDS: CARVEDILOL 25 MG TABLET (FP) PO SCH ×2 (10:26→21:35)
[2021-10-01] MEDS: APIXABAN 5 MG TABLET PO SCH ×2 (10:26→21:35)
[2021-10-01] MEDS: POTASSIUM CHLORIDE TABS 20 MEQ TABLET.ER (FP) PO SCH (10:26)
[2021-10-01] MEDS: LOSARTAN POTASSIUM 50 MG TABLET PO SCH (10:26)
[2021-10-01] MEDS: MINERAL OIL/PET HY-PHL TOPICAL OINTMENT 454 GM JAR TP SCH (10:27)
[2021-10-01] MEDS: FLUTICASONE/SALMETEROL 100 MCG/50 MCG DISKUS IH SCH ×2 (10:27→21:35)
[2021-10-01] MEDS: LATANOPROST 0.005% OPHTH SOLN 2.5ML BOTTLE OU SCH (21:35)
[2021-10-01] MEDS: MONTELUKAST NA 10 MG TABLET PO SCH (21:35)
[2021-10-02] MEDS: CEFAZOLIN 2 GM in DEXTROSE 5%-WATER - 100 ML IVPB SCH (05:45)
[2021-10-02] MEDS: FUROSEMIDE 40 MG/4 ML INJECTABLE VIAL IVPUSH SCH ×2 (05:46→13:27)
[2021-10-02 09:51] LABS: BASO % 0.3 % (0-2.0); EOS % 2.3 % (0-4.5); HEMATOCRIT 42.6 % (35.4-49); HEMOGLOBIN 14.5 GM/dL (11.7-16.9); LYMPH % 28.7 % (8-40); MCH 29.7 pg (25.7-33.7); MCHC 33.9 g/dl (32.0-35.9); MEAN CELL VOLUME 87.6 fl (80-96); MONO % 9.6 % (3.8-10.2); NEUT % 59.1 % (42.8-82.8); PLATELET COUNT 250 10^3/uL (134-434); RBC 4.87 M/mm3 (4.00-5.60); RDW 14.7 % (11.9-15.9); WHITE BLOOD COUNT 7.1 K/mm3 (4.0-10.0)
[2021-10-02] MEDS: APIXABAN 5 MG TABLET PO SCH ×2 (09:52→21:10)
[2021-10-02] MEDS: MINERAL OIL/PET HY-PHL TOPICAL OINTMENT 454 GM JAR TP SCH (09:52)
[2021-10-02] MEDS: CARVEDILOL 25 MG TABLET (FP) PO SCH ×2 (09:52→21:10)
[2021-10-02] MEDS: LOSARTAN POTASSIUM 50 MG TABLET PO SCH (09:52)
[2021-10-02] MEDS: POTASSIUM CHLORIDE TABS 20 MEQ TABLET.ER (FP) PO SCH (09:52)
[2021-10-02] MEDS: FLUTICASONE/SALMETEROL 100 MCG/50 MCG DISKUS IH SCH ×2 (09:53→21:10)
[2021-10-02 10:18] LABS: ALBUMIN 3.1 g/dl (3.4-5.0); BLOOD UREA NITROGEN 20.8 mg/dL (7-18)
[2021-10-02 10:21] LABS: CREATININE 0.7 mg/dL (0.55-1.3)
[2021-10-02 10:22] LABS: BILIRUBIN,TOTAL 0.4 mg/dL (0.2-1)
[2021-10-02] MEDS: MONTELUKAST NA 10 MG TABLET PO SCH (21:10)
[2021-10-02] MEDS: LATANOPROST 0.005% OPHTH SOLN 2.5ML BOTTLE OU SCH (21:11)
[2021-10-03] MEDS: FUROSEMIDE 40 MG/4 ML INJECTABLE VIAL IVPUSH SCH (05:17)
[2021-10-03] MEDS: POTASSIUM CHLORIDE TABS 20 MEQ TABLET.ER (FP) PO SCH (09:25)
[2021-10-03] MEDS: LOSARTAN POTASSIUM 50 MG TABLET PO SCH (09:25)
[2021-10-03] MEDS: CARVEDILOL 25 MG TABLET (FP) PO SCH ×2 (09:25→21:43)
[2021-10-03] MEDS: APIXABAN 5 MG TABLET PO SCH ×2 (09:26→21:43)
[2021-10-03] MEDS: FLUTICASONE/SALMETEROL 100 MCG/50 MCG DISKUS IH SCH ×2 (09:27→21:44)
[2021-10-03] MEDS: MINERAL OIL/PET HY-PHL TOPICAL OINTMENT 454 GM JAR TP SCH (09:27)
[2021-10-03] MEDS: AMOX TR/POT CLAV 875MG/125MG TABLETS (FP) PO SCH ×2 (12:44→18:18)
[2021-10-03] MEDS: LACTOBACILLUS ACIDOPHILUS 1 TABLET PO SCH (12:44)
[2021-10-03] MEDS: TORSEMIDE 20 MG TABLET (FP) PO SCH (18:32)
[2021-10-03] MEDS: MONTELUKAST NA 10 MG TABLET PO SCH (21:43)
[2021-10-03] MEDS: LATANOPROST 0.005% OPHTH SOLN 2.5ML BOTTLE OU SCH (21:43)
[2021-10-04] MEDS: TORSEMIDE 20 MG TABLET (FP) PO SCH ×2 (06:12→13:58)
[2021-10-04] MEDS: CARVEDILOL 25 MG TABLET (FP) PO SCH (09:34)
[2021-10-04] MEDS: LOSARTAN POTASSIUM 50 MG TABLET PO SCH (09:34)
[2021-10-04] MEDS: APIXABAN 5 MG TABLET PO SCH (09:34)
[2021-10-04] MEDS: AMOX TR/POT CLAV 875MG/125MG TABLETS (FP) PO SCH ×2 (09:34→18:21)
[2021-10-04] MEDS: MINERAL OIL/PET HY-PHL TOPICAL OINTMENT 454 GM JAR TP SCH (09:35)
[2021-10-04] MEDS: FLUTICASONE/SALMETEROL 100 MCG/50 MCG DISKUS IH SCH (09:35)
[2021-10-04] MEDS: LACTOBACILLUS ACIDOPHILUS 1 TABLET PO SCH (09:35)
[2021-10-04] MEDS: POTASSIUM CHLORIDE TABS 20 MEQ TABLET.ER (FP) PO SCH (09:35)
[2021-10-04 15:26] VITALS: BP 107/54; PULSE 110; TEMP 97.7
== END 2021-10-04 18:27 | disposition home or self-care (01) | DRG 603 ==
LOC: JER 01:16 → JERBED 04:28 → J5S 08:32
PROVIDERS: ADMIT Internal Medicine; ATTEND Internal Medicine
PROC: 0HDRXZZ Extraction of Toe Nail, External Approach (ICD-10-PCS; principal; 2021-09-30)
DX: L03.116 Cellulitis of left lower limb (principal); Z68.42 Body mass index [BMI] 45.0-49.9, adult; I50.32 Chronic diastolic (congestive) heart failure; E66.01 Morbid (severe) obesity due to excess calories; I11.0 Hypertensive heart disease with heart failure; J44.9 Chronic obstructive pulmonary disease, unspecified; I48.0 Paroxysmal atrial fibrillation; I89.0 Lymphedema, not elsewhere classified; I87.8 Other specified disorders of veins; B35.1 Tinea unguium; G47.33 Obstructive sleep apnea (adult) (pediatric)
CPT/HCPCS: 36415; 71045-TC-FY; 80048; 80053; 81003; 82962; 83036; 83605; 85025; 85610; 85651; 85730; 86140; 87040; 87086; 93005; 93010; 97116-GP; 97162-GP; 99285-25; C9803-CS; U0003; U0005

== ENCOUNTER 2022-06-23 18:46 | Inpatient (IN) | payer OTHER ==
[2022-06-23 18:52] VITALS: BMI 43.5
[2022-06-23] MEDS ORDERED: VANCOMYCIN 1 GM in D5W (PRE-DOCKED) 1,000 MG/250 ML IVPB ONE (19:32)
[2022-06-23] MEDS ORDERED: PIPERACILLIN/TAZOB 3.375 GM 3.375 GM in DEXTROSE 5%-WATER - 50 ML IVPB ONE (19:32)
[2022-06-23] MEDS ORDERED: ACETAMINOPHEN 1000 MG/100 ML BAG IVPB ONE (19:32)
[2022-06-23] MEDS ORDERED: VANCOMYCIN/WATER FOR INJ (PEG) 1,000 MG/200 ML BAG IVPB ONE (20:06)
[2022-06-23] MEDS ORDERED: PIPERACILLIN/TAZOB 3.375 GM 3.375 GM/50 ML BAG IVPB ONE (20:06)
[2022-06-23] MEDS ORDERED: ACETAMINOPHEN INJECTION 100 ML IVPB ONE (20:06)
[2022-06-23 20:55] LABS: BASO % 0.3 % (0-2.0); EOS % 1.5 % (0-4.5); HEMATOCRIT 37.9 % (35.4-49); HEMOGLOBIN 12.9 GM/dL (11.7-16.9); LYMPH % 22.3 % (8-40); MCHC 33.9 g/dl (32.0-35.9); MEAN CELL VOLUME 88.4 fl (80-96); MEAN PLT VOLUME 7.5 fl (7.5-11.1); MONO % 9.2 % (3.8-10.2); NEUT % 66.7 % (42.8-82.8); PLATELET COUNT 355 10^3/uL (134-434); RBC 4.29 M/mm3 (4.00-5.60); RDW 14.2 % (11.9-15.9); WHITE BLOOD COUNT 9.1 K/mm3 (4.0-10.0)
[2022-06-23 21:07] LABS: INR 1.63 (0.83-1.09); PROTHROMBIN TIME (PATIENT) 18.8 SEC (9.7-13.0)
[2022-06-23 21:10] LABS: ACTIVATED PTT 39.7 SECONDS (25.2-36.5)
[2022-06-23 21:19] LABS: CHLORIDE 100 mmol/L (98-107); SODIUM 138 mmol/L (136-145)
[2022-06-23 21:21] LABS: ALBUMIN 3.2 g/dl (3.4-5.0); ANION GAP 9 MMOL/L (8-16); CO2 30 mmol/L (21-32); GLUCOSE,RANDOM 112 mg/dL (74-106); MAGNESIUM 2.7 mg/dL (1.8-2.4)
[2022-06-23 21:24] LABS: CREATININE 2.1 mg/dL (0.55-1.3); SGOT/AST 12 U/L (15-37); SGPT/ALT 17 U/L (13-61)
[2022-06-23 21:26] LABS: BILIRUBIN,TOTAL 0.3 mg/dL (0.2-1); TOT PROT 7.8 g/dl (6.4-8.2)
[2022-06-23 21:27] LABS: ALK PHOS 70 U/L (45-117)
[2022-06-23 21:29] LABS: N-TERMINAL BNP 1025.4 pg/ml (5-125)
[2022-06-23 21:38] LABS: BLOOD UREA NITROGEN 150.4 mg/dL (7-18)
[2022-06-23] MEDS ORDERED: SODIUM CHLORIDE 0.9% 500 ML INFUS.BAG IV ONE (22:21)
[2022-06-24] MEDS ORDERED: ALBUTEROL SO4 HFA INHALER IH PRN (05:18)
[2022-06-24] MEDS ORDERED: PIPERACILLIN/TAZOB 3.375 GM 3.375 GM in DEXTROSE 5%-WATER - 50 ML IVPB SCH (10:00)
[2022-06-24] MEDS: APIXABAN 5 MG TABLET PO SCH ×2 (10:12→22:21)
[2022-06-24] MEDS: CARVEDILOL 25 MG TABLET (FP) PO SCH ×2 (10:12→22:21)
[2022-06-24] MEDS: FLUTICASONE/SALMETEROL 100 MCG/50 MCG DISKUS IH SCH ×2 (11:13→22:21)
[2022-06-24] MEDS: CEFTRIAXONE 2 GM in DEXTROSE 5%-WATER 100 ML IVPB SCH (12:45)
[2022-06-24 13:38] LABS: HEMATOCRIT 36.7 % (35.4-49); HEMOGLOBIN 12.7 GM/dL (11.7-16.9); MCH 30.3 pg (25.7-33.7); MCHC 34.6 g/dl (32.0-35.9); MEAN CELL VOLUME 87.6 fl (80-96); MEAN PLT VOLUME 7.4 fl (7.5-11.1); PLATELET COUNT 344 10^3/uL (134-434); RBC 4.19 M/mm3 (4.00-5.60); WHITE BLOOD COUNT 7.6 K/mm3 (4.0-10.0)
[2022-06-24 13:56] LABS: CHLORIDE 103 mmol/L (98-107); SODIUM 140 mmol/L (136-145)
[2022-06-24 13:59] LABS: ANION GAP 9 MMOL/L (8-16); CALCIUM 9.1 mg/dL (8.5-10.1); CO2 28 mmol/L (21-32); GLUCOSE,RANDOM 178 mg/dL (74-106)
[2022-06-24 14:02] LABS: CREATININE 1.6 mg/dL (0.55-1.3)
[2022-06-24 14:06] LABS: BLOOD UREA NITROGEN 131.4 mg/dL (7-18)
[2022-06-24 14:23] LABS: ANISOCYTOSIS 0; HELMET CELLS 0; HOWELL-JOLLY BODIES 0; MACROCYTOSIS 0; OVALOCYTE 0; ROULEAU 0; SICKELED CELLS 0; TARGET CELLS 0; TEAR DROP CELLS 0; TOXIC GRANULATION 0
[2022-06-24] MEDS ORDERED: SODIUM CHLORIDE 0.45% 1,000 ML IV SCH (15:30)
[2022-06-24] MEDS: MONTELUKAST NA 10 MG TABLET PO SCH (22:21)
[2022-06-24] MEDS: LATANOPROST 0.005% OPHTH SOLN 2.5ML BOTTLE OU SCH (22:42)
[2022-06-25] MEDS ORDERED: PIPERACILLIN/TAZOB 3.375 GM 3.375 GM in DEXTROSE 5%-WATER - 50 ML IVPB SCH (10:00)
[2022-06-25] MEDS: CARVEDILOL 25 MG TABLET (FP) PO SCH ×2 (10:12→21:45)
[2022-06-25] MEDS: CEFTRIAXONE 2 GM in DEXTROSE 5%-WATER 100 ML IVPB SCH (10:12)
[2022-06-25] MEDS: APIXABAN 5 MG TABLET PO SCH ×2 (10:12→21:45)
[2022-06-25] MEDS: FLUTICASONE/SALMETEROL 100 MCG/50 MCG DISKUS IH SCH ×2 (10:13→21:46)
[2022-06-25 10:33] LABS: BASO % 0.5 % (0-2.0); HEMOGLOBIN 13.4 GM/dL (11.7-16.9); LYMPH % 27.7 % (8-40); MCH 29.8 pg (25.7-33.7); MCHC 33.6 g/dl (32.0-35.9); MEAN CELL VOLUME 88.8 fl (80-96); MEAN PLT VOLUME 7.8 fl (7.5-11.1); MONO % 9.8 % (3.8-10.2); PLATELET COUNT 384 10^3/uL (134-434); WHITE BLOOD COUNT 8.5 K/mm3 (4.0-10.0)
[2022-06-25 11:01] LABS: CALCIUM 9.2 mg/dL (8.5-10.1)
[2022-06-25 11:02] LABS: ALBUMIN 3.2 g/dl (3.4-5.0)
[2022-06-25 11:05] LABS: CREATININE 1.1 mg/dL (0.55-1.3)
[2022-06-25 11:06] LABS: TOT PROT 8.2 g/dl (6.4-8.2)
[2022-06-25 11:07] LABS: BILIRUBIN,TOTAL 0.4 mg/dL (0.2-1)
[2022-06-25 11:08] LABS: BLOOD UREA NITROGEN 83.4 mg/dL (7-18)
[2022-06-25] MEDS ORDERED: SODIUM CHLORIDE NASAL SPRAY 44 ML BOTTLE NS PRN (11:23)
[2022-06-25] MEDS: PANTOPRAZOLE 40 MG TABLET PO SCH (11:40)
[2022-06-25] MEDS: MONTELUKAST NA 10 MG TABLET PO SCH (21:45)
[2022-06-25] MEDS: LATANOPROST 0.005% OPHTH SOLN 2.5ML BOTTLE OU SCH (21:45)
[2022-06-26] MEDS: PANTOPRAZOLE 40 MG TABLET PO SCH (10:04)
[2022-06-26] MEDS: CARVEDILOL 25 MG TABLET (FP) PO SCH ×2 (10:04→21:51)
[2022-06-26] MEDS: APIXABAN 5 MG TABLET PO SCH ×2 (10:04→21:51)
[2022-06-26] MEDS: CEFTRIAXONE 2 GM in DEXTROSE 5%-WATER 100 ML IVPB SCH (10:05)
[2022-06-26] MEDS: FLUTICASONE/SALMETEROL 100 MCG/50 MCG DISKUS IH SCH ×2 (10:06→21:57)
[2022-06-26] MEDS: LORATADINE 10 MG TABLET PO SCH (18:10)
[2022-06-26] MEDS: MONTELUKAST NA 10 MG TABLET PO SCH (21:51)
[2022-06-26] MEDS: LATANOPROST 0.005% OPHTH SOLN 2.5ML BOTTLE OU SCH (21:57)
[2022-06-27] MEDS: LORATADINE 10 MG TABLET PO SCH (10:14)
[2022-06-27] MEDS: CARVEDILOL 25 MG TABLET (FP) PO SCH ×2 (10:14→21:48)
[2022-06-27] MEDS: FLUTICASONE/SALMETEROL 100 MCG/50 MCG DISKUS IH SCH ×2 (10:14→21:48)
[2022-06-27] MEDS: PANTOPRAZOLE 40 MG TABLET PO SCH (10:14)
[2022-06-27] MEDS: APIXABAN 5 MG TABLET PO SCH ×2 (10:14→21:48)
[2022-06-27] MEDS: CEFTRIAXONE 2 GM in DEXTROSE 5%-WATER 100 ML IVPB SCH (10:15)
[2022-06-27 11:49] LABS: ALBUMIN 3.2 g/dl (3.4-5.0); CALCIUM 9.2 mg/dL (8.5-10.1)
[2022-06-27 11:52] LABS: CREATININE 1.1 mg/dL (0.55-1.3)
[2022-06-27 11:54] LABS: BILIRUBIN,TOTAL 0.3 mg/dL (0.2-1); TOT PROT 8.1 g/dl (6.4-8.2)
[2022-06-27 12:15] LABS: BLOOD UREA NITROGEN 41.7 mg/dL (7-18)
[2022-06-27] MEDS: CEFEPIME 1 GM in DEXTROSE 5%-WATER 100 ML IVPB SCH (18:20)
[2022-06-27] MEDS: MONTELUKAST NA 10 MG TABLET PO SCH (21:48)
[2022-06-27] MEDS: LATANOPROST 0.005% OPHTH SOLN 2.5ML BOTTLE OU SCH (21:48)
[2022-06-28] MEDS: CEFEPIME 1 GM in DEXTROSE 5%-WATER 100 ML IVPB SCH ×3 (02:39→17:59)
[2022-06-28] MEDS: PANTOPRAZOLE 40 MG TABLET PO SCH (10:59)
[2022-06-28] MEDS: CARVEDILOL 25 MG TABLET (FP) PO SCH ×2 (10:59→21:49)
[2022-06-28] MEDS: FLUTICASONE/SALMETEROL 100 MCG/50 MCG DISKUS IH SCH ×2 (10:59→21:49)
[2022-06-28] MEDS: APIXABAN 5 MG TABLET PO SCH ×2 (10:59→21:49)
[2022-06-28] MEDS: LORATADINE 10 MG TABLET PO SCH (10:59)
[2022-06-28] MEDS: MONTELUKAST NA 10 MG TABLET PO SCH (21:48)
[2022-06-28] MEDS: LATANOPROST 0.005% OPHTH SOLN 2.5ML BOTTLE OU SCH (21:49)
[2022-06-29] MEDS: CEFEPIME 1 GM in DEXTROSE 5%-WATER 100 ML IVPB SCH ×3 (01:47→17:14)
[2022-06-29] MEDS: TORSEMIDE 20 MG TABLET (FP) PO SCH (09:54)
[2022-06-29] MEDS: PANTOPRAZOLE 40 MG TABLET PO SCH (09:54)
[2022-06-29] MEDS: LORATADINE 10 MG TABLET PO SCH (09:54)
[2022-06-29] MEDS: APIXABAN 5 MG TABLET PO SCH ×2 (09:54→21:15)
[2022-06-29] MEDS: CARVEDILOL 25 MG TABLET (FP) PO SCH ×2 (09:54→23:20)
[2022-06-29] MEDS: FLUTICASONE/SALMETEROL 100 MCG/50 MCG DISKUS IH SCH ×3 (10:36→21:15)
[2022-06-29 10:57] LABS: ALBUMIN 3.1 g/dl (3.4-5.0)
[2022-06-29 10:58] LABS: CALCIUM 8.9 mg/dL (8.5-10.1)
[2022-06-29 10:59] LABS: BLOOD UREA NITROGEN 38.9 mg/dL (7-18)
[2022-06-29 11:02] LABS: CREATININE 1.1 mg/dL (0.55-1.3)
[2022-06-29 11:03] LABS: BILIRUBIN,TOTAL 0.3 mg/dL (0.2-1); TOT PROT 7.7 g/dl (6.4-8.2)
[2022-06-29] MEDS ORDERED: BISMUTH SUBSALICYLATE 262 MG/15 ML BTL PO ONE ×2 (17:24→20:00)
[2022-06-29] MEDS: MONTELUKAST NA 10 MG TABLET PO SCH (21:15)
[2022-06-29] MEDS: LATANOPROST 0.005% OPHTH SOLN 2.5ML BOTTLE OU SCH (21:18)
[2022-06-30] MEDS: CEFEPIME 1 GM in DEXTROSE 5%-WATER 100 ML IVPB SCH ×3 (03:41→17:06)
[2022-06-30] MEDS: APIXABAN 5 MG TABLET PO SCH ×2 (09:19→21:46)
[2022-06-30] MEDS: PANTOPRAZOLE 40 MG TABLET PO SCH (09:19)
[2022-06-30] MEDS: TORSEMIDE 20 MG TABLET (FP) PO SCH (09:19)
[2022-06-30] MEDS: LORATADINE 10 MG TABLET PO SCH (09:19)
[2022-06-30] MEDS: FLUTICASONE/SALMETEROL 100 MCG/50 MCG DISKUS IH SCH ×2 (09:19→21:47)
[2022-06-30] MEDS: CARVEDILOL 25 MG TABLET (FP) PO SCH ×2 (09:19→21:45)
[2022-06-30 10:21] LABS: ALBUMIN 3.2 g/dl (3.4-5.0); BLOOD UREA NITROGEN 48.5 mg/dL (7-18)
[2022-06-30 10:24] LABS: CREATININE 1.4 mg/dL (0.55-1.3)
[2022-06-30 10:25] LABS: BILIRUBIN,TOTAL 0.5 mg/dL (0.2-1); TOT PROT 8.3 g/dl (6.4-8.2)
[2022-06-30] MEDS: MONTELUKAST NA 10 MG TABLET PO SCH (21:46)
[2022-06-30] MEDS: LATANOPROST 0.005% OPHTH SOLN 2.5ML BOTTLE OU SCH (21:47)
[2022-06-30] MEDS ORDERED: ACETAMINOPHEN 325 MG TABLET (FP) PO PRN (23:08)
[2022-07-01] MEDS: CEFEPIME 1 GM in DEXTROSE 5%-WATER 100 ML IVPB SCH ×2 (02:14→10:07)
[2022-07-01 10:07] VITALS: RESP 20
[2022-07-01] MEDS: APIXABAN 5 MG TABLET PO SCH (10:07)
[2022-07-01] MEDS: CARVEDILOL 25 MG TABLET (FP) PO SCH (10:07)
[2022-07-01] MEDS: LORATADINE 10 MG TABLET PO SCH (10:07)
[2022-07-01] MEDS: TORSEMIDE 20 MG TABLET (FP) PO SCH (10:07)
[2022-07-01] MEDS: PANTOPRAZOLE 40 MG TABLET PO SCH (10:07)
[2022-07-01] MEDS: FLUTICASONE/SALMETEROL 100 MCG/50 MCG DISKUS IH SCH (10:07)
[2022-07-01 15:24] VITALS: BP 110/57; PULSE 58; TEMP 97.5
== END 2022-07-01 17:32 | disposition home or self-care (01) | DRG 603 ==
LOC: JER 18:46 → JERBED 06-24 02:00 → J6S 06-24 04:12
PROVIDERS: ADMIT Internal Medicine; ATTEND Internal Medicine
DX: L03.115 Cellulitis of right lower limb (principal); N17.9 Acute kidney failure, unspecified; Z68.41 Body mass index [BMI] 40.0-44.9, adult; I50.32 Chronic diastolic (congestive) heart failure; L03.116 Cellulitis of left lower limb; J44.9 Chronic obstructive pulmonary disease, unspecified; G47.33 Obstructive sleep apnea (adult) (pediatric); I87.2 Venous insufficiency (chronic) (peripheral); E66.01 Morbid (severe) obesity due to excess calories; I48.0 Paroxysmal atrial fibrillation; I11.0 Hypertensive heart disease with heart failure; E78.5 Hyperlipidemia, unspecified; B35.1 Tinea unguium; Z96.643 Presence of artificial hip joint, bilateral
CPT/HCPCS: 0241U-QW; 36415; 73610-TC-LT-FY; 73630-TC-LT; 73700-TC-RT; 76775-TC; 80048; 80053; 83735; 83880; 84484; 85025; 85610; 85730; 86850; 86900; 86901; 87040; 87070; 87186; 87205; 87324; 87449; 93005; 93010; 93306-TC; 93971-TC; 99285-25